=== PATIENT | male | born 1940 | race Asian ===

== ENCOUNTER 2022-09-23 23:49 | Inpatient (IN) | payer OTHER ==
[~2022-09-23] VITALS: Ht 162.6 cm; Wt 56.7 kg
--- NOTE | 2022-09-23 23:53 | NUR ---
[id number] FROM [facility] FOR GEN WEAKNESS X1DAY. PT A/OX3. TOLERATING O2 2LPM VIA N/C AT 96%. RFA HS FISTULA +BUIT/ THRILL. HD MWF. CONNECTED PT TO POX AND MONITOR. SAFETY MEASURES IN PLACE.
--- NOTE | 2022-09-24 | NUR ---
PLHEBOTOMIST AT PT'S BEDSIDE
[2022-09-24 00:25] LABS: BASOPHILS % (AUTO) 1.2 % (0.0-2.0); EOSINOPHILS % (AUTO) 6.8 % (0.0-6.0); HEMATOCRIT 33 % (39-51); HEMOGLOBIN 10.8 g/dL (13.5-17.5); LYMPHOCYTES # (AUTO) 0.8 K/uL (0.8-4.8); LYMPHOCYTES % (AUTO) 23.3 % (20.0-44.0); MEAN CORPUSCULAR HGB CONC 32 g/dl (31.0-36.0); MEAN CORPUSCULAR VOLUME 97 fL (80-96); MONOCYTES # (AUTO) 0.5 K/uL (0.1-1.30); MONOCYTES % (AUTO) 15.7 % (2.0-12.0); NEUTROPHILS # (AUTO) 1.8 K/uL (1.8-8.9); PLATELET COUNT (AUTO) 145 K/uL (150-450); RED BLOOD CELL COUNT(AUTO) 3.44 MIL/uL (4.5-6.0); WHITE BLOOD COUNT (AUTO) 3.3 K/uL (4.3-11.0)
--- NOTE | 2022-09-24 00:33 | NUR ---
CASINO FLOOR SUPERVISOR AT PT'S BEDSIDE
[2022-09-24 00:37] LABS: CALCIUM, SERUM 7.3 mg/dL (8.5-10.1); CARBON DIOXIDE 22 mmol/L (21-32); CHLORIDE 91 mmol/L (98-107); CREATININE 4.3 mg/dL (0.6-1.3); GLUCOSE 115 mg/dL (74-106); POTASSIUM 4.3 mmol/L (3.5-5.1); SODIUM SERUM 125 mmol/L (136-145); UREA NITROGEN, BLOOD 43 mg/dL (7-18)
--- NOTE | 2022-09-24 02:19 | NUR ---
COVID ANTIGEN SWAB COLLECTED AND SENT TO LAB
--- NOTE | 2022-09-24 02:33 | NUR ---
UPDATED TAWNYA (DAUGHTER) [phone]
[2022-09-24] MEDS ORDERED: AZITHROMYCIN 500 MG VIAL ONE (02:57)
[2022-09-24] MEDS ORDERED: CEFTRIAXONE 1GM BAG (ER ONLY) 50 ML IV ONE (02:57)
[2022-09-24] MEDS ORDERED: AZITHROMYCIN 500 MG in IV D5W 250 ML IV ONE (03:00)
[2022-09-24] MEDS ORDERED: MAGNESIUM HYDROXIDE 30 ML UDC PO PRN (03:00)
[2022-09-24] MEDS ORDERED: ACETAMINOPHEN 325 MG TABLET PO PRN (03:00)
[2022-09-24] MEDS ORDERED: ONDANSETRON HCL/PF 4 MG/2 ML VIAL IVP PRN (03:00)
[2022-09-24] MEDS ORDERED: Z GUARD REMEDY 4 OZ OINT TP PRN (03:00)
[2022-09-24] MEDS ORDERED: MAG HYDROX/AL HYDROX/SIMETH 30 ML UDC PO PRN (03:00)
[2022-09-24] MEDS ORDERED: CEFTRIAXONE 1GM BAG (ER ONLY) 1 GM/50 ML PIGGYBACK IV ONE (03:00)
[2022-09-24] MEDS ORDERED: DEXTROSE 50%-WATER 50 ML DISP.SYRIN IV PRN (03:00)
[2022-09-24] MEDS ORDERED: NIFE30TA91 PO (03:36)
[2022-09-24] MEDS ORDERED: DENO120V SQ (03:36)
[2022-09-24] MEDS ORDERED: BICA50TA8 PO (03:36)
[2022-09-24] MEDS ORDERED: LEVE500T20 PO (03:36)
[2022-09-24] MEDS ORDERED: COLCHICINE (03:36)
[2022-09-24] MEDS ORDERED: CARV12.52 PO (03:36)
[2022-09-24] MEDS ORDERED: FAMO20TA8 PO (03:36)
--- NOTE | 2022-09-24 03:37 | NUR ---
REPORT GIVEN TO ENE James RN FOR LIBIA
--- NOTE | 2022-09-24 03:41 | NUR ---
GETTING TRASFERRED TO THIRD FLOOR UNDER ACLS
--- NOTE | 2022-09-24 03:45 | NUR ---
ASSEMBLER DC FIELD YOKE ADMITTING NOTES PT ARRIVED TO UNIT VIA GURNEY BY ER STAFF. ON O2 3L VIA NC, TITRATED TO 4L, THEN 5L PER PT C/O SOB. VS: 113/59 BP, 69 HR, 96% O2, 97.9 F, 138.4 LB. A/O X3 WITH MOMENTS OF CONFUSION, ANXIOUS. C/O OF BEING HUNGRY/THIRSTY AND WOULD LIKE TO EAT. EXPLAINED TO PT THAT HE IS ON FLUID RESTRICTIONS AND CONSISTENT CARB DIET BUT DOES NOT VERBALIZE UNDERSTANDING. C/O THAT HUNGER IS CONTRIBUTING TO SOB. O2 MEASURSED SHOWING 94%. PLACED ON TELE MONITOR SHOWING V-PACING 60 HR. C/O SOB, NO RESPIRATORY DISTRESS NOTED. DENIES CHEST PAIN AT THIS TIME. ORIENTED TO UNIT AND HOW TO USE CALL LIGHT. IV ACCESS NOTED L HAND #18G AND LAC #18G, SL, PATENT AND INTACT. SKIN ISSUES NOTED AND DOCUMENTED IN CHART: L EYE MISSING, BRUISINGS, SACRAL DISCOLORATION. PT C/O BURNING SENSATION IN HAND IV ACCESS. ALL CARE PROVIDED. SAFETY PRECAUTIONS PUT IN PLACE: BED LOCKED AND IN LOWEST POSITION, SIDE RAILS UP X3, BED ALARM ON, CALL LIGHT AND TRAY TABLE WITHIN REACH. WILL CONTINUE TO MONITOR AND ASSIST PT.
[2022-09-24] MEDS ORDERED: LISPRO (03:49)
[2022-09-24] MEDS ORDERED: LEUP22.53 IM (03:51)
[2022-09-24] MEDS ORDERED: INSU100I40 SQ ×2 (03:51→07:47)
[2022-09-24] MEDS ORDERED: CHOL500052 PO (03:51)
[2022-09-24] MEDS ORDERED: IPRA0.2S9 NEB (03:51)
[2022-09-24] MEDS ORDERED: TAMSULOSIN (03:51)
[2022-09-24 07:15] LABS: IRON, SERUM 68 ug/dl (50-175); TOTAL IRON BINDING CAPACITY 161 ug/dl (250-450)
--- NOTE | 2022-09-24 07:15 | NUR ---
DIRECTOR SALES SUPPORT CLOSING NOTES PT AWAKE IN BED, EATING BREAKFAST AT THIS TIME. ASSISTED PER REQUEST. STABLE ON O2 5L VIA NC. A/O X3 WITH MOMENTS OF CONFUSION, ANXIOUS, NEEDY. ON TELE MONITOR SHOWING V-PACING 52 HR. C/O SOB, NO RESPIRATORY DISTRESS NOTED. HOB ELEVATED HIGH FOWLERS. PT VERBALIZES IMPROVEMENT AND STATES EATING HELPS. DENIES CHEST PAIN AT THIS TIME. IV ACCESS NOTED L HAND #18G AND LAC #18G, SL, PATENT AND INTACT. ALL CARE PROVIDED. SAFETY PRECAUTIONS MAINTAINED: BED LOCKED AND IN LOWEST POSITION, SIDE RAILS UP X3, BED ALARM ON, CALL LIGHT AND TRAY TABLE WITHIN REACH. WILL ENDORSE LIBIA TO DAY SHIFT NURSE.
[2022-09-24 07:20] LABS: EOSINOPHILS % (AUTO) 6.7 % (0.0-6.0); HEMATOCRIT 32 % (39-51); HEMOGLOBIN 10.6 g/dL (13.5-17.5); LYMPHOCYTES # (AUTO) 0.8 K/uL (0.8-4.8); LYMPHOCYTES % (AUTO) 24.1 % (20.0-44.0); MEAN CORPUSCULAR HGB CONC 33 g/dl (31.0-36.0); MEAN CORPUSCULAR VOLUME 96 fL (80-96); MONOCYTES # (AUTO) 0.4 K/uL (0.1-1.30); MONOCYTES % (AUTO) 12.2 % (2.0-12.0); NEUTROPHILS # (AUTO) 1.9 K/uL (1.8-8.9); PLATELET COUNT (AUTO) 145 K/uL (150-450); RED BLOOD CELL COUNT(AUTO) 3.36 MIL/uL (4.5-6.0); WHITE BLOOD COUNT (AUTO) 3.4 K/uL (4.3-11.0)
[2022-09-24 07:24] LABS: CHOLESTEROL 146 mg/dL (<200); HDL CHOLESTEROL 35 mg/dL (40-60); LDL 98 mg/dL (0-99); THYROID STIMULATING HORMONE 5.179 uIU/mL (0.358-3.74); TRIGLYCERIDES 88 mg/dL (30-150)
[2022-09-24 07:26] LABS: CALCIUM, SERUM 7.2 mg/dL (8.5-10.1); CARBON DIOXIDE 22 mmol/L (21-32); CHLORIDE 90 mmol/L (98-107); CREATININE 4.4 mg/dL (0.6-1.3); GLUCOSE 124 mg/dL (74-106); MAGNESIUM 2.4 mg/dL (1.8-2.4); PHOSPHORUS 4.3 mg/dL (2.5-4.9); POTASSIUM 4.3 mmol/L (3.5-5.1); SODIUM SERUM 123 mmol/L (136-145); UREA NITROGEN, BLOOD 46 mg/dL (7-18)
--- NOTE | 2022-09-24 07:30 | NUR ---
RN OPENING NOTE RECEIVED PATIENT ASLEEP FROM CIRCUIT BOARD ASSEMBLER NURSE. PATIENT IS AO X 3. TELE MONITOR IN PLACE. HAS LAC #18 AND L HAND #18. LHAND SEEMS TO CAUSE SOME PAIN SO LAC BEING USED. PT ON STRICT FLUID RESTRICTION. PATIENT SAFE, BED LOW TO THE GROUND, RAILS UP. WILL CONTINUE TO MONITOR THROUGHOUT DAY
[2022-09-24] MEDS ORDERED: CALC667T2 PO (07:47)
[2022-09-24] MEDS ORDERED: MELA3TAB41 PO (07:47)
[2022-09-24] MEDS ORDERED: AMIN30LI2 PO (07:47)
[2022-09-24] MEDS ORDERED: BISA10SU11 RC (07:47)
[2022-09-24] MEDS ORDERED: ACET-868 PO (07:47)
[2022-09-24] MEDS ORDERED: HYDR30CR99 RC (07:47)
[2022-09-24] MEDS ORDERED: COLC0.6C3 PO (07:47)
[2022-09-24] MEDS ORDERED: ISOS30TA86 PO (07:47)
[2022-09-24] MEDS ORDERED: TAMS-12 PO (07:47)
[2022-09-24] MEDS ORDERED: CALC-1143 PO (07:47)
[2022-09-24] MEDS ORDERED: NITR0.4T48 SL (07:47)
[2022-09-24] MEDS ORDERED: POLY15DR40 RIGHTEYE (07:47)
[2022-09-24] MEDS ORDERED: FOLI0.8T2 PO (07:47)
[2022-09-24] MEDS: BLOOD SUGAR DIAGNOSTIC 1 EACH STRIP IN SCH ×4 (07:56→22:01)
[2022-09-24] MEDS: INSULIN REGULAR, HUMAN 100 UNIT/ML 3 ML VIAL SQ PRN ×2 (07:56→22:02)
[2022-09-24 08:12] VITALS: BP 120/64
[2022-09-24] MEDS: CEFEPIME 1 GM in IV D5W 50 ML IV SCH ×2 (08:25→20:10)
[2022-09-24] MEDS: HEPARIN SODIUM, PORCINE 5000 UNITS/1 ML VIAL SQ SCH ×2 (08:25→20:43)
[2022-09-24] MEDS: PANTOPRAZOLE 40 MG VIAL IV SCH (08:25)
--- NOTE | 2022-09-24 09:23 | NUR ---
RN NOTE ECHO BEING DONE AT BEDSIDE
--- NOTE | 2022-09-24 10:25 | NUR ---
WOUND CARE CONSULT: PT WAS SEEN FOR SKIN ASSESSMENT AND NOTED TO HAVE SACRAL INTACT DEEP TISSUE INJURY WITH SCARRING WELL RT HEEL CALLUS AND DISCOLORATION/CALLUSES TO TOES, PRESENT ON ADMISSION. RECOMMENDATIONS MADE FOR SKIN PROTECTION. DISCUSSED WITH NURSING STAFF. MD IN AGREEMENT WITH PLAN OF CARE.
[2022-09-24] MEDS ORDERED: ISOSORBIDE MONONITRATE (30MG) 30 MG TAB.SR.24H PO PRN (10:30)
--- NOTE | 2022-09-24 11:00 | NUR ---
RN NOTE WOUND NURSE ASKED TO DOCUMENT SCAB ON L HEEL OF PATIENT. WOUND PHOTOGRAPHED AND PLACED IN CHART
[2022-09-24] MEDS: CARVEDILOL 12.5 MG TABLET PO SCH ×2 (11:01→20:08)
[2022-09-24] MEDS: NIFEdipine XL (30MG) 30 MG TAB PO SCH ×2 (11:02→20:08)
[2022-09-24] MEDS: FAMOTIDINE (20 MG) 20 MG TABLET PO SCH (11:02)
[2022-09-24] MEDS: LEVETIRACETAM (250 MG) 250 MG TABLET PO SCH (11:02)
[2022-09-24 12:00] VITALS: BP 182/86
--- NOTE | 2022-09-24 12:51 | NUR ---
RN NOTE PATIENT BLOOD PRESSURE AT 184/82. GIVING PATIENT ISOSORBIDE 30MG PRN
--- NOTE | 2022-09-24 14:59 | NUR ---
RN NOTE DIALYSIS NURSE CALLED AND ASKED WHAT PATIENTS LABS WERE LIKE. SAID HE RECIEVED A CALL FROM DOCTOR FOR ORDER AND WOULD BE COMING IN AND PERFORMING DIALYSIS MOST LIKELY LATER TONIGHT.
[2022-09-24] MEDS ORDERED: BISACODYL SUPP (10 MG) 10 MG/SUPP.RECT SUPP.RECT RC PRN (15:30)
--- NOTE | 2022-09-24 16:50 | NUR ---
RN NOTE DIALYSIS NURSE AT BEDSIDE. DAILYSIS CONSENT OBTAINED AND BEGINNING DAILYSIS
--- NOTE | 2022-09-24 19:10 | NUR ---
RN opening notes Received Pt from morning nurse. Pt is laying in bed comfortably watching tv. Pt is alert and orientedX2-3. On 4 L NC. No sob. No S/s of distress noted. LAC# 18 is clean, intact and SL. L hand# 18 is clean, intact and SL. R forearm fistula HD is clean, intact and on HD. Pt is having HD with JEAN-PIERRE Hernandez. Tele monitor showed vpacing. safety precautions is maintained. bed at low position, brakes locked, side rails upX3, hob elevated, bed alarm is on and call light is within reach.
--- NOTE | 2022-09-24 19:21 | NUR ---
RN CLOSING NOTES PT AWAKE IN BEDRECEIVING DIALYSIS. STABLE ON O2 5L VIA NC. A/O X2-3 WITH MOMENTS OF CONFUSION, ANXIOUS, NEEDY. ON TELE MONITOR SHOWING V-PACING 60 HR. C/O SOB, NO RESPIRATORY DISTRESS NOTED. HOB ELEVATED HIGH FOWLERS. DENIES CHEST PAIN AT THIS TIME. IV ACCESS NOTED L HAND #18G AND LAC #18G, PATENT AND INTACT. ALL CARE PROVIDED. SAFETY PRECAUTIONS MAINTAINED: BED LOCKED AND IN LOWEST POSITION, SIDE RAILS UP X3, BED ALARM ON, CALL LIGHT AND TRAY TABLE WITHIN REACH. WILL ENDORSE TO DENTAL LABORATORY MANAGER NURSE FOR LIBIA.
--- NOTE | 2022-09-24 19:53 | NUR ---
RN notes HD is done with dialysis nurse JEAN-PIERRE Hernandez. 2 L output. Pt tolerated well.
[2022-09-24 20:00] VITALS: BP 183/75
[2022-09-24] MEDS: CALCIUM CARBONATE 500 MG TAB.CHEW PO SCH (20:07)
[2022-09-24] MEDS: CALCIUM ACETATE 667 MG CAP/TAB PO SCH (20:08)
--- NOTE | 2022-09-24 20:08 | NUR ---
RN notes Am nurse gave meds to pm nurse that overdue at 1700 pm. administered 1700 pm meds because Pt was having HD.
[2022-09-24] MEDS: TAMSULOSIN 0.4 MG CAP.SR.24H PO SCH (21:47)
[2022-09-24] MEDS: ZOLPIDEM TARTRATE 5 MG TABLET PO PRN (22:10)
--- NOTE | 2022-09-24 22:11 | NUR ---
RN notes Pt is having insomnia and requesting a sleeping pill. administered ambien 5 mg/po/prn as ordered per Pt's requested. safety precautions is maintained. will continue to monitor.
--- NOTE | 2022-09-24 23:29 | NUR ---
RN notes Dr. Machado at the bedside. MD ordered ativan 0.5mg/Q6 hr/po/prn for anxiety. Order carried out.
[2022-09-25] VITALS: BP 179/71
[2022-09-25] MEDS: hydrALAZINE HCL IV 20 MG VIAL IV PRN (00:46)
[2022-09-25] MEDS ORDERED: POLYVINYL ALCOHOL 15 ML BOTTLE OP PRN (01:00)
[2022-09-25 04:00] VITALS: BP 159/71
[2022-09-25] MEDS: INSULIN REGULAR, HUMAN 100 UNIT/ML 3 ML VIAL SQ PRN ×2 (06:32→20:57)
[2022-09-25] MEDS: BLOOD SUGAR DIAGNOSTIC 1 EACH STRIP IN SCH ×4 (06:32→20:53)
--- NOTE | 2022-09-25 06:40 | NUR ---
RN closing notes Pt is resting in bed comfortably. Pt is alert and orientedX2-3. On 4 L NC. No sob. No S/s of distress noted. LAC# 18 is clean, intact and SL. L hand# 18 is clean, intact and SL. R forearm fistula HD is clean, intact and on HD. Tele monitor showed vpacing hr at 62. Routine meds were given as ordered. Kept Pt clean, dry and comfortable. safety precautions is maintained. bed at low position, brakes locked, side rails upX3, hob elevated, bed alarm is on and call light is within reach. will endorse to am nurse for LIBIA.
[2022-09-25 06:49] LABS: CALCIUM, SERUM 7.6 mg/dL (8.5-10.1); CARBON DIOXIDE 22 mmol/L (21-32); CHLORIDE 94 mmol/L (98-107); CREATININE 3.5 mg/dL (0.6-1.3); GLUCOSE 89 mg/dL (74-106); MAGNESIUM 2.2 mg/dL (1.8-2.4); PHOSPHORUS 3.7 mg/dL (2.5-4.9); POTASSIUM 3.9 mmol/L (3.5-5.1); SODIUM SERUM 129 mmol/L (136-145); UREA NITROGEN, BLOOD 31 mg/dL (7-18)
[2022-09-25 06:57] LABS: BASOPHILS % (AUTO) 1.7 % (0.0-2.0); EOSINOPHILS % (AUTO) 4.8 % (0.0-6.0); HEMATOCRIT 31 % (39-51); HEMOGLOBIN 10.2 g/dL (13.5-17.5); LYMPHOCYTES # (AUTO) 0.5 K/uL (0.8-4.8); LYMPHOCYTES % (AUTO) 20.8 % (20.0-44.0); MEAN CORPUSCULAR HGB CONC 33 g/dl (31.0-36.0); MEAN CORPUSCULAR VOLUME 96 fL (80-96); MONOCYTES # (AUTO) 0.3 K/uL (0.1-1.30); MONOCYTES % (AUTO) 12.2 % (2.0-12.0); NEUTROPHILS # (AUTO) 1.5 K/uL (1.8-8.9); NEUTROPHILS % (AUTO) 60.5 % (43.0-81.0); PLATELET COUNT (AUTO) 138 K/uL (150-450); RED BLOOD CELL COUNT(AUTO) 3.25 MIL/uL (4.5-6.0); WHITE BLOOD COUNT (AUTO) 2.4 K/uL (4.3-11.0)
[2022-09-25 08:00] VITALS: BP 140/71
[2022-09-25] MEDS: VIT B CMPLX 3/FA/VIT C/BIOTIN 1 TAB TABLET PO SCH (08:24)
[2022-09-25] MEDS: COLCHICINE 0.6 MG TABLET PO SCH (08:24)
[2022-09-25] MEDS: CALCIUM CARBONATE 500 MG TAB.CHEW PO SCH ×2 (08:25→16:17)
[2022-09-25] MEDS: LEVETIRACETAM (250 MG) 250 MG TABLET PO SCH (08:25)
[2022-09-25] MEDS: CARVEDILOL 12.5 MG TABLET PO SCH ×2 (08:25→16:18)
[2022-09-25] MEDS: CALCIUM ACETATE 667 MG CAP/TAB PO SCH ×3 (08:25→17:09)
[2022-09-25] MEDS: CEFEPIME 1 GM in IV D5W 50 ML IV SCH ×2 (08:26→20:48)
[2022-09-25] MEDS: NIFEdipine XL (30MG) 30 MG TAB PO SCH ×2 (08:26→16:18)
[2022-09-25] MEDS: BICALUTAMIDE 50 MG TABLET PO SCH (08:26)
[2022-09-25] MEDS: HEPARIN SODIUM, PORCINE 5000 UNITS/1 ML VIAL SQ SCH ×2 (08:27→20:43)
[2022-09-25] MEDS: PANTOPRAZOLE 40 MG VIAL IV SCH (08:27)
[2022-09-25] MEDS: ERGOCALCIFEROL (VITAMIN D 2) 50,000 UNIT CAPSULE PO SCH (08:30)
[2022-09-25] MEDS: PROSOURCE / PROSTAT (PYXIS) 30 ML UDC PO SCH (09:00)
[2022-09-25 12:00] VITALS: BP 146/78
[2022-09-25] MEDS ORDERED: NEPRO VAN 237 ML CAN PO PRN (15:30)
[2022-09-25 16:00] VITALS: BP 153/82
[2022-09-25] MEDS: IPRATROPIUM NEB FS 0.5 MG/2.5 ML AMPUL.NEB NEB PRN (18:13)
--- NOTE | 2022-09-25 18:15 | NUR ---
END OF SHIFT SUMMARY PATIENT IS A/O X2-3, FORGETFUL, CONFUSED TOWARDS THE END OF THE SHIFT. FREQUENT RE-ORIENTATION NEEDED. TAGALOG SPEAKING. ON TELE, V-PACING. TITRATED 02 TO 3 LPM VIA NC, SATURATING WELL. ON HD, ANURIC. LOYDA AV FISTULA, PRESENCE OF THRILL AND BRUIT. HEPARIN FOR VTE. LEFT EYE DRESSING CHANGED BY . MOD ASSIST WITH REPOSITIONING. BREATHING TREATMENT DONE. SAFETY MEASURES MAINTAINED. BED IN LOWEST POSITION, BRAKES LOCKED. SIDE RAILS UP X2. CALL LIGHT WITHIN REACH. WILL ENDORSE CONTINUITY OF CARE TO ONCOMING SHIFT.
--- NOTE | 2022-09-25 18:16 | NUR ---
END OF SHIFT SUMMARY PATIENT IS A/O X3, WEANED OFF 02, SATURATING WELL ON RA. ON TELE, SR. LIV IN PLACE, INCONTINENCE CARE PROVIDED. LOTRIMIN APPLIED TO FOLDS. SCDs FOR VTE. SAFETY MEASURES MAINTAINED. BED IN LOWEST POSITION, BRAKES LOCKED. SIDE RAILS UP X2. CALL LIGHT WITHIN REACH. WILL ENDORSE CONTINUITY OF CARE TO ONCOMING SHIFT. Addendum: 09/25/22 at 1820 by MKIKI BHATTI RN VOID. DISREGARD.
[2022-09-25 20:00] VITALS: BP_SYST 159; BP_SYST 199; BP_DIAS 104; BP_DIAS 90
[2022-09-25] MEDS: LORAZEPAM 0.5 MG TABLET PO PRN (20:33)
--- NOTE | 2022-09-25 20:43 | NUR ---
ANTICOAGULANT H/H 10. Plt 138 No active bleeding. Given Heparin injection, co-signed by JEAN-PIERRE Collier.
[2022-09-25] MEDS: TAMSULOSIN 0.4 MG CAP.SR.24H PO SCH (21:34)
[2022-09-25] MEDS: ZOLPIDEM TARTRATE 5 MG TABLET PO PRN (21:36)
[2022-09-26] VITALS: BP 178/77
[2022-09-26] MEDS: hydrALAZINE HCL IV 20 MG VIAL IV PRN ×2 (00:30→20:53)
[2022-09-26] MEDS: IPRATROPIUM NEB FS 0.5 MG/2.5 ML AMPUL.NEB NEB PRN ×2 (01:02→20:20)
--- NOTE | 2022-09-26 01:48 | NUR ---
WHEEZING Patient in bed, restless, trying to get out of bed. Constantly removed NC by himself, desat to high 80's in RA. Diminished breath sounds cristi LL, inspiratory wheezing. Nebulizer not helping at this time. Oxygen sat high 90's in 3L NC. Notified CUSTOMER CARE TEAM COACH Ailyn with new orders, Chest xray Solu-medrol 125mg IV x1 CBC BMP. Will cont to monitor.
[2022-09-26] MEDS ORDERED: methylPREDNISolone SOD SUCC 125 MG/2ML VIAL IV ONE (02:00)
[2022-09-26 06:03] LABS: BASOPHILS % (AUTO) 0.4 % (0.0-2.0); EOSINOPHILS % (AUTO) 1.1 % (0.0-6.0); HEMATOCRIT 33 % (39-51); HEMOGLOBIN 10.9 g/dL (13.5-17.5); LYMPHOCYTES # (AUTO) 0.6 K/uL (0.8-4.8); LYMPHOCYTES % (AUTO) 20.3 % (20.0-44.0); MEAN CORPUSCULAR HGB CONC 33 g/dl (31.0-36.0); MEAN CORPUSCULAR VOLUME 96 fL (80-96); MONOCYTES # (AUTO) 0.1 K/uL (0.1-1.30); MONOCYTES % (AUTO) 3.2 % (2.0-12.0); NEUTROPHILS # (AUTO) 2.3 K/uL (1.8-8.9); PLATELET COUNT (AUTO) 144 K/uL (150-450); RED BLOOD CELL COUNT(AUTO) 3.43 MIL/uL (4.5-6.0)
[2022-09-26] MEDS: INSULIN REGULAR, HUMAN 100 UNIT/ML 3 ML VIAL SQ PRN ×3 (06:07→16:52)
[2022-09-26] MEDS: BLOOD SUGAR DIAGNOSTIC 1 EACH STRIP IN SCH ×4 (06:07→21:37)
[2022-09-26 06:21] LABS: CALCIUM, SERUM 7.7 mg/dL (8.5-10.1); CARBON DIOXIDE 22 mmol/L (21-32); CHLORIDE 91 mmol/L (98-107); CREATININE 4.3 mg/dL (0.6-1.3); GLUCOSE 120 mg/dL (74-106); MAGNESIUM 2.5 mg/dL (1.8-2.4); PHOSPHORUS 4.6 mg/dL (2.5-4.9); POTASSIUM 4.3 mmol/L (3.5-5.1); SODIUM SERUM 126 mmol/L (136-145); UREA NITROGEN, BLOOD 45 mg/dL (7-18)
--- NOTE | 2022-09-26 06:25 | NUR ---
END OF SHIFT SUMMARY Patient in bed, V Pacing in the Tele monitor HR 71. Oxygen sat high 90's in 3L NC, breathing improved after IV Solu medrol. Patient able to sleep after Ambien and slowly calm down with Ativan. RFA AV Fistula (+) Bruit and Thrill. Left hand IV peripheral line intact. On Abx. Afebrile. Turned and repositioned q2h, skin precaution maintained. Am lab drawn, CXray done. Dialysis treatment in progress. Will endorse to oncoming RN.
[2022-09-26 08:00] VITALS: BP_SYST 136; BP_SYST 139; BP_DIAS 62; BP_DIAS 69
[2022-09-26] MEDS: CALCIUM CARBONATE 500 MG TAB.CHEW PO SCH ×2 (09:17→16:47)
[2022-09-26] MEDS: CALCIUM ACETATE 667 MG CAP/TAB PO SCH ×3 (09:18→17:25)
[2022-09-26] MEDS: LEVETIRACETAM (250 MG) 250 MG TABLET PO SCH (09:18)
[2022-09-26] MEDS: VIT B CMPLX 3/FA/VIT C/BIOTIN 1 TAB TABLET PO SCH (09:18)
[2022-09-26] MEDS: COLCHICINE 0.6 MG TABLET PO SCH (09:19)
[2022-09-26] MEDS: NIFEdipine XL (30MG) 30 MG TAB PO SCH ×2 (09:19→16:48)
[2022-09-26] MEDS: HEPARIN SODIUM, PORCINE 5000 UNITS/1 ML VIAL SQ SCH ×2 (09:20→21:16)
[2022-09-26] MEDS: CARVEDILOL 12.5 MG TABLET PO SCH ×2 (09:20→16:48)
[2022-09-26] MEDS: PANTOPRAZOLE 40 MG/PACK PACK PO SCH (09:23)
[2022-09-26] MEDS: PROSOURCE / PROSTAT (PYXIS) 30 ML UDC PO SCH (09:25)
[2022-09-26] MEDS: BICALUTAMIDE 50 MG TABLET PO SCH (09:52)
[2022-09-26] MEDS: CEFEPIME 1 GM in IV D5W 50 ML IV SCH (09:54)
[2022-09-26] MEDS: FAMOTIDINE (20 MG) 20 MG TABLET PO SCH (10:55)
--- NOTE | 2022-09-26 15:59 | NUR ---
PATIENT STILL TRYING TO PRODUCE A PEE FOR URINE ANALYSIS PER STAT ORDER, UNSUCCESSFUL UP TO THIS TIME. MARY ANNE IS ON THE BEDSIDE AND HELPING OUT. PATIENT ALREADY SIPS APPROXIMATELY 50ML OF WATER
[2022-09-26 16:00] VITALS: BP 111/76
[2022-09-26] MEDS: LORAZEPAM 0.5 MG TABLET PO PRN (17:19)
--- NOTE | 2022-09-26 19:33 | NUR ---
RN OPENING NOTE; RECEIVED PT IN BED AAOX3 FAMILY AT BEDSIDE,ON RM AIR JOSE WELL SATTING 97%,NO SIGN SOB/DISTRESS NOTED,NO COMPLAIN OF PAIN/DISCOMFORT AT THIS TIME,IV ACCESS LH 20G,RAC 20G SL,PATENT AND INTACT,SAFETY MEASURE IN PLACE,CALL LIGHT WITHIN REACH,WILL CONTINUE TO MONITOR.
--- NOTE | 2022-09-26 19:40 | NUR ---
RN CLOSING NOTES PT AWAKE IN BED STABLE ON O2 4L VIA NC. A/O X2-3 WITH EPISODES OF CONFUSION, ANXIOUS, NEEDY. ON TELE MONITOR SHOWING V-PACING 79 HR. C/O SOB, NO RESPIRATORY DISTRESS NOTED. HOB ELEVATED HIGH FOWLERS. DENIES CHEST PAIN AT THIS TIME. IV ACCESS NOTED L HAND #18G AND LAC #18G, PATENT AND INTACT. ALL CARE PROVIDED. SAFETY PRECAUTIONS MAINTAINED: BED LOCKED AND IN LOWEST POSITION, SIDE RAILS UP X3, BED ALARM ON, CALL LIGHT AND TRAY TABLE WITHIN REACH. WILL ENDORSE TO FISH HATCHERY INSPECTOR NURSE FOR LIBIA.
[2022-09-26] MEDS: TAMSULOSIN 0.4 MG CAP.SR.24H PO SCH (21:14)
[2022-09-26] MEDS: CEFEPIME 2 GM in IV D5W 100 ML IV SCH (21:15)
[2022-09-26] MEDS: ZOLPIDEM TARTRATE 5 MG TABLET PO PRN (22:21)
[2022-09-27] VITALS (38 sets, daily range): BP systolic 100–178; BP diastolic 46–107
--- NOTE | 2022-09-27 06:20 | NUR ---
RN OPENING NOTES; PATIENT IN BED AAOX2 CONFUSED,ON 4L O2 VIA NC JOSE WELL SATTING 98%,NO SIGN SOB/DISTRESS NOTED,NO SIGN OF PAIN/DISCOMFORT DURING SHIFT,DUE MEDS GIVEN ORDER,ALL NEEDS ATTENDED,IV ACCESS NOTED L HAND #18G AND LAC #18G, PATENT AND INTACT. SAFETY PRECAUTIONS MAINTAINED: BED LOCKED AND IN LOWEST POSITION, SIDE RAILS UP X3, BED ALARM ON, CALL LIGHT WITHIN REACH. WILL ENDORSE TO PAYABLE MANAGER.
[2022-09-27 07:35] LABS: CALCIUM, SERUM 7.9 mg/dL (8.5-10.1); CARBON DIOXIDE 26 mmol/L (21-32); CHLORIDE 95 mmol/L (98-107); CREATININE 3.6 mg/dL (0.6-1.3); GLUCOSE 101 mg/dL (74-106); MAGNESIUM 2.3 mg/dL (1.8-2.4); PHOSPHORUS 4.4 mg/dL (2.5-4.9); POTASSIUM 3.8 mmol/L (3.5-5.1); SODIUM SERUM 132 mmol/L (136-145); UREA NITROGEN, BLOOD 36 mg/dL (7-18)
[2022-09-27] MEDS: BLOOD SUGAR DIAGNOSTIC 1 EACH STRIP IN SCH ×4 (07:37→22:05)
[2022-09-27 08:26] LABS: BASOPHILS % (AUTO) 0.3 % (0.0-2.0); EOSINOPHILS % (AUTO) 0.2 % (0.0-6.0); HEMATOCRIT 29 % (39-51); HEMOGLOBIN 9.7 g/dL (13.5-17.5); LYMPHOCYTES # (AUTO) 0.4 K/uL (0.8-4.8); LYMPHOCYTES % (AUTO) 9.7 % (20.0-44.0); MEAN CORPUSCULAR HGB CONC 33 g/dl (31.0-36.0); MEAN CORPUSCULAR VOLUME 96 fL (80-96); MONOCYTES # (AUTO) 0.5 K/uL (0.1-1.30); NEUTROPHILS # (AUTO) 3.6 K/uL (1.8-8.9); NEUTROPHILS % (AUTO) 79.8 % (43.0-81.0); PLATELET COUNT (AUTO) 102 K/uL (150-450); RED BLOOD CELL COUNT(AUTO) 3.03 MIL/uL (4.5-6.0); WHITE BLOOD COUNT (AUTO) 4.6 K/uL (4.3-11.0)
--- NOTE | 2022-09-27 08:34 | NUR ---
RN NOTES PT SUPPLEMENTAL 02 VIA N/C @ 4LPM TITRATED DOWN TO 2LPM. PT TOLERATING WELL WITH NO SOB NOTED. 02 SAT NOTED AT 94-95% AT THIS TIME. WILL CONTINUE TO MONITOR
[2022-09-27] MEDS: NIFEdipine XL (30MG) 30 MG TAB PO SCH ×2 (09:00→17:00)
[2022-09-27] MEDS: CARVEDILOL 12.5 MG TABLET PO SCH ×2 (09:00→17:00)
[2022-09-27] MEDS: PANTOPRAZOLE 40 MG/PACK PACK PO SCH (09:26)
[2022-09-27] MEDS: COLCHICINE 0.6 MG TABLET PO SCH (09:26)
[2022-09-27] MEDS: HEPARIN SODIUM, PORCINE 5000 UNITS/1 ML VIAL SQ SCH ×2 (09:26→21:00)
[2022-09-27] MEDS: CALCIUM CARBONATE 500 MG TAB.CHEW PO SCH ×2 (09:26→17:00)
[2022-09-27] MEDS: LEVETIRACETAM (250 MG) 250 MG TABLET PO SCH (09:28)
[2022-09-27] MEDS: CALCIUM ACETATE 667 MG CAP/TAB PO SCH ×3 (09:28→17:50)
[2022-09-27] MEDS: PROSOURCE / PROSTAT (PYXIS) 30 ML UDC PO SCH (10:08)
[2022-09-27] MEDS: BICALUTAMIDE 50 MG TABLET PO SCH (10:13)
[2022-09-27] MEDS: VIT B CMPLX 3/FA/VIT C/BIOTIN 1 TAB TABLET PO SCH (10:20)
[2022-09-27] MEDS: INSULIN REGULAR, HUMAN 100 UNIT/ML 3 ML VIAL SQ PRN ×2 (11:49→17:54)
--- NOTE | 2022-09-27 12:15 | NUR ---
dr. Sandoval informed about abnormal abg, new order to transfer pt to ICU for Bipap.
--- NOTE | 2022-09-27 12:17 | NUR ---
informed about ABG, bipap 20/5 and repeat ABG in one hour.
--- NOTE | 2022-09-27 12:20 | NUR ---
discussed with Rn tool and die supervisor, ICU bed 253
--- NOTE | 2022-09-27 12:29 | NUR ---
RN NOTES PATIENT NOTED WITH ABNORMAL ABG, DR ATWOOD AND DR KAPOOR MADE AWARE WITH ORDER TO TRANSFER PT TO ICU VIA ACLS PROTOCOL. PT TRANSFERRED TO ICU RM 253, REPORT GIVEN TO JEAN-PIERRE WARD AT 1135. PT'S VISITED UNIT AND INFORMED HER OF PT'S CONDITION AND ACCOMPANIED HER BY JEAN-PIERRE VELIZ TO PT'S ROOM IN ICU
[2022-09-27 12:30] LABS: ABG BASE EXCESS -4.2 mmol/L; ABG OXYGEN SATURATION 91.8 % (92.0-98.5); ABG PCO2 57.2 mmHg (35.0-45.0); ABG PH 7.234 (7.350-7.450); ABG PO2 67.9 mmHg (75.0-100.0); AaDO2 122.4 mmHg; COHb 1.9 % (0.5-1.5); MetHb 0.3 % (0.0-1.5); O2Hb 89.8 % (94.0-97.0); SITE, ABG Left Radial; VENT MODE, BG 4LPM NC
--- NOTE | 2022-09-27 12:40 | NUR ---
RT NOTE POST ABG RESULTS SHOWN TO DR. ATWOOD. PLACE PATIENT ON BIPAP WITH SETTINGS PER MD. 18/5, BUR 18, 60%. NO SOB NOTED AT THIS TIME. MONITORING CLOSELY FOR ANY CHANGES. RN NOTIFIED AND AWARE.
--- NOTE | 2022-09-27 12:42 | NUR ---
RECEIVED PT FROM [facility] TO ICU. BIPAP 18/ SETTING , BEDSIDE REPORT GIVEN BY SAMEERA.
[2022-09-27] MEDS: LEVOTHYROXINE SODIUM 25 MCG TABLET PO SCH (13:00)
[2022-09-27] MEDS ORDERED: VANCOMYCIN 1 GM in IV D5W 250 ML IV ONE (14:00)
[2022-09-27] MEDS ORDERED: VANCOMYCIN 500 MG in IV D5W 100 ML IV PRN (14:00)
--- NOTE | 2022-09-27 14:20 | NUR ---
DR. KAPOOR WAS NOTIFIED OF THE CT HEAD/CT CHEST RESULT NO ORDER MADE REGARDING THIS; MD ALSO AWARE THAT PT.'S -MARY ANNE AGREED WITH RESTRAINT.
[2022-09-27] MEDS: IV NS 0.9% 250 ML IV PRN (14:46)
[2022-09-27 15:14] LABS: ABG BASE EXCESS -4.2 mmol/L; ABG OXYGEN SATURATION 96.6 % (92.0-98.5); ABG PCO2 48.8 mmHg (35.0-45.0); ABG PH 7.283 (7.350-7.450); ABG PO2 92.7 mmHg (75.0-100.0); AaDO2 281.4 mmHg; COHb 1.3 % (0.5-1.5); MetHb 0.3 % (0.0-1.5); O2Hb 95.1 % (94.0-97.0); SITE, ABG Left Radial; VENT MODE, BG ST 18/5 RR18 60%
--- NOTE | 2022-09-27 15:29 | NUR ---
RT NOTE Abg taken and results reported to Jaime ROSENBAUM. Bipap changes made per Jaime ROSENBAUM. RN aware Addendum: 09/27/22 at 1530 by DEONNA SUAREZ RT Amended: Links added.
--- NOTE | 2022-09-27 21:00 | NUR ---
DOOR FITTER - NOTIFIED MD OF RESULTED CT SCAN HEAD. RECEIVED PHONE ORDER - HOLD HEPARIN PER BIOMETRIC FINGERPRINTING TECHNICIAN MD
[2022-09-27] MEDS: TAMSULOSIN 0.4 MG CAP.SR.24H PO SCH (21:36)
--- NOTE | 2022-09-27 22:00 | NUR ---
MANAGER ENGLISH - PT IS RESTLESS AND AGITATED, STILL ON BILATERAL WRIST SOFT RESTRAINTS, CHECKED CIRC EVERY 2 HOURS. RELEASED. TURNED AND REPOSITIONED. BED BATH DONE. KEPT COMFORTABLE. WILL CONTINUE TO MONITOR.
[2022-09-27] MEDS: CEFEPIME 2 GM in IV D5W 100 ML IV SCH (22:05)
[2022-09-28] VITALS (60 sets, daily range): BP systolic 93–229; BP diastolic 27–135
--- NOTE | 2022-09-28 | NUR ---
PHOTOGRAPH RETOUCHER - NOTED PERIPHERAL IV SITE AT LEFT HAND #24, ATTEMPTED INSERTION AT OTHER SITE - HARD STICK. INFORMED CHARGE NURSE. NOTIFIED Meenu SANFORD RN AND APPROVED FOR MIDLINE INSERTION 09/28/2022 EARLY IN THE MORNING.
[2022-09-28 04:37] LABS: EOSINOPHILS % (AUTO) 1.6 % (0.0-6.0); HEMATOCRIT 35 % (39-51); HEMOGLOBIN 11.3 g/dL (13.5-17.5); LYMPHOCYTES # (AUTO) 0.2 K/uL (0.8-4.8); LYMPHOCYTES % (AUTO) 4.8 % (20.0-44.0); MEAN CORPUSCULAR HGB CONC 32 g/dl (31.0-36.0); MEAN CORPUSCULAR VOLUME 97 fL (80-96); MONOCYTES # (AUTO) 0.4 K/uL (0.1-1.30); MONOCYTES % (AUTO) 8.5 % (2.0-12.0); NEUTROPHILS # (AUTO) 4.1 K/uL (1.8-8.9); NEUTROPHILS % (AUTO) 85.1 % (43.0-81.0); PLATELET COUNT (AUTO) 97 K/uL (150-450); RED BLOOD CELL COUNT(AUTO) 3.64 MIL/uL (4.5-6.0); WHITE BLOOD COUNT (AUTO) 4.8 K/uL (4.3-11.0)
[2022-09-28 04:55] LABS: CALCIUM, SERUM 8.1 mg/dL (8.5-10.1); CARBON DIOXIDE 26 mmol/L (21-32); CHLORIDE 98 mmol/L (98-107); CREATININE 2.8 mg/dL (0.6-1.3); GLUCOSE 85 mg/dL (74-106); MAGNESIUM 2.3 mg/dL (1.8-2.4); PHOSPHORUS 3.1 mg/dL (2.5-4.9); POTASSIUM 3.5 mmol/L (3.5-5.1); SODIUM SERUM 132 mmol/L (136-145); UREA NITROGEN, BLOOD 30 mg/dL (7-18)
--- NOTE | 2022-09-28 05:00 | NUR ---
AIR SURVEILLANCE OPERATOR - BP IS HIGH 212/94. GIVEN HYDRALAZINE PRN ORDERED. KEPT COMFORTABLE. WILL CONTINUE TO MONITOR.
[2022-09-28] MEDS: hydrALAZINE HCL IV 20 MG VIAL IV PRN ×3 (05:13→16:25)
[2022-09-28] MEDS ORDERED: MORPHINE SULFATE INJ 2 MG/ML DISP.SYRIN IV ONE (05:30)
--- NOTE | 2022-09-28 05:30 | NUR ---
PT IS IN PAIN, RESTLESS AND MOANING. INFORMED JAVASCRIPT ENGINEER DOCTOR. ORDERED MORPHINE 1MG. GIVEN. WILL RE ASSESS. KEPT COMFORTABLE.
--- NOTE | 2022-09-28 06:15 | NUR ---
RECEIVED PHONE CALL FROM YISSEL ALLAN RN. ORDERED HEMODIALYSIS TODAY, ORDERED DR. BENJAMIN.
--- NOTE | 2022-09-28 06:30 | NUR ---
BP STILL HIGH 218/106. NOTIFIED AL WAHL. ORDERED ANOTHER DOSE OF HYDRALAZINE 10MG. GIVEN. WILL CONT TO MONITOR.
[2022-09-28] MEDS: IV NS 0.9% 250 ML IV PRN (06:51)
[2022-09-28] MEDS: LEVOTHYROXINE SODIUM 25 MCG TABLET PO SCH (07:30)
--- NOTE | 2022-09-28 07:30 | NUR ---
OPENING NOTE: REPORT RECEIVED FROM BENY RN. ORDERS AND LABS REVIEWED DURING REPORT. HD ORDERED FOR TODAY. PT ON BIPAP PER MD ORDERS. PER REPORT PT'S BP IS HIGH, UP TO SBP 200. WILL CONTINUE TO MONITOR.
[2022-09-28] MEDS ORDERED: NTG 50 MG/D5W250 ML BOTTL 250 ML IV PRN (08:00)
[2022-09-28] MEDS ORDERED: CLONIDINE HCL 0.3 MG/24H PTWK 1 EA PATCH TD SCH (08:00)
[2022-09-28] MEDS: CALCIUM ACETATE 667 MG CAP/TAB PO SCH ×3 (08:00→17:18)
[2022-09-28] MEDS: BICALUTAMIDE 50 MG TABLET PO SCH (08:06)
[2022-09-28] MEDS: CARVEDILOL 12.5 MG TABLET PO SCH ×2 (08:07→17:00)
[2022-09-28] MEDS: COLCHICINE 0.6 MG TABLET PO SCH (08:07)
[2022-09-28] MEDS: LEVETIRACETAM (250 MG) 250 MG TABLET PO SCH (08:07)
[2022-09-28] MEDS: PROSOURCE / PROSTAT (PYXIS) 30 ML UDC PO SCH (08:08)
[2022-09-28] MEDS: CALCIUM CARBONATE 500 MG TAB.CHEW PO SCH ×2 (08:08→17:00)
[2022-09-28] MEDS: VIT B CMPLX 3/FA/VIT C/BIOTIN 1 TAB TABLET PO SCH (08:08)
[2022-09-28] MEDS: NIFEdipine XL (30MG) 30 MG TAB PO SCH ×2 (08:08→17:00)
[2022-09-28] MEDS: PANTOPRAZOLE 40 MG/PACK PACK PO SCH (08:08)
[2022-09-28] MEDS: FAMOTIDINE (20 MG) 20 MG TABLET PO SCH (10:30)
[2022-09-28 11:06] LABS: LYMPHOCYTES % (MANUAL) 8 % (16-48); MONOCYTES % (MANUAL) 5 % (0-11.0); NEUTROPHILS % (MANUAL) 85 (42-76)
[2022-09-28 11:07] LABS: EOSINOPHILS % (MANUAL) 2 % (0-4)
[2022-09-28] MEDS: BLOOD SUGAR DIAGNOSTIC 1 EACH STRIP IN SCH ×2 (12:27→18:07)
[2022-09-28] MEDS: HEPARIN SODIUM, PORCINE 5000 UNITS/1 ML VIAL SQ SCH ×2 (12:29→21:00)
[2022-09-28 15:25] LABS: ABG BASE EXCESS -4.3 mmol/L; ABG OXYGEN SATURATION 91.6 % (92.0-98.5); ABG PCO2 51.8 mmHg (35.0-45.0); ABG PH 7.265 (7.350-7.450); ABG PO2 68.4 mmHg (75.0-100.0); AaDO2 128.2 mmHg; COHb 1.6 % (0.5-1.5); MetHb 0.3 % (0.0-1.5); O2Hb 89.9 % (94.0-97.0); SITE, ABG Right Radial; VENT MODE, BG NASAL CANNULA
[2022-09-28] MEDS ORDERED: VANCOMYCIN 1 GM in IV D5W 250ml IV ONE (16:00)
[2022-09-28] MEDS ORDERED: hydrALAZINE HCL IV 20 MG VIAL IV ONE (18:30)
[2022-09-28] MEDS ORDERED: hydrALAZINE HCL IV 20 MG VIAL IV PRN (18:30)
[2022-09-28] MEDS: DEXTROSE 50%-WATER 50 ML DISP.SYRIN IV PRN (18:40)
--- NOTE | 2022-09-28 19:12 | NUR ---
END OF SHIFT NOTE: PT HAD HD 2L OUT. PT'S BLOOD PRESSURE FLUCTUATED TODAY. CLONIDINE PATCH APPLIED PER MD ORDERS. HYDRALAZINE GIVEN PER MD ORDERS, ORDER CHANGED TO INCREASE DOSE TO 20MG Q6H. ONE TIME DOSE OF HYDRALAZINE GIVEN PER MD ORDERS. PT'S BLOOD GLUCOSE WAS 62, D50 GIVEN PER MD ORDERS. PT CHECKED ON HOURLY AND PRN BY NURSING STAFF.
--- NOTE | 2022-09-28 20:30 | NUR ---
ICU/POLYGRAPH OPERATOR RECHECK BLOOD SUGAR IS 114 FROM 68. WILL MONITOR THIS PT.
[2022-09-28] MEDS: CEFEPIME 2 GM in IV D5W 100 ML IV SCH (20:36)
--- NOTE | 2022-09-28 21:00 | NUR ---
ICU/REFINISHER HYDRALAZINE 20MG IVP GIVEN FOR BP 229/75 WITH HEART RATE 76. WILL CONTINUE TO MONITOR THIS PT AND HIS BP.
[2022-09-28] MEDS: TAMSULOSIN 0.4 MG CAP.SR.24H PO SCH (21:21)
--- NOTE | 2022-09-28 21:30 | NUR ---
ICU/HOP WEIGHER HEPARIN @2100 WAS HELD DUE TO LOW PLT AND PT IS BLEEDING. WILL CONTINUE TO MONITOR THIS PT AND HIS LABS.
--- NOTE | 2022-09-28 22:30 | NUR ---
ICU/COLORER HIDES AND SKINS DAUGHTER OF PT CAME IN AND WAS ASKING ABOUT UPDATE ON THIS PT DESPITE SHE HAD JUST WENT HOME 1 HOUR AGO. PT'S DAUGHTER REQUESTING PT BE TRANSFERRED TO [facility]. ALSO EXPLAINED THAT HEPARIN WAS HELD FOR LOW PLT. PT'S DAUGHTER WOULD LIKE THIS D/C'D. SHE ALSO WANTS TO TALK TO DR. GERBER TO ANSWER THE QUESTIONS IN THE VERY BEST WAY POSSIBLE BUT REFEREED HER TO DAY SHIFT AND WHEN MD WILL BE HERE.
[2022-09-29] VITALS (99 sets, daily range): BP systolic 92–216; BP diastolic 34–136
--- NOTE | 2022-09-29 00:30 | NUR ---
ICU/ODD TICKET CLERK RESIDUAL IS COMING DOWN HOWEVER IT'S STILL GREATER THAN 150ML. ALSO PT'S BLOOD SUGAR IS 89, THERE IS NO COVERAGE FOR THIS. WILL CONTINUE TO MONITOR THIS PER MD'S ORDERS.
[2022-09-29] MEDS: BLOOD SUGAR DIAGNOSTIC 1 EACH STRIP IN SCH ×4 (00:39→18:03)
[2022-09-29] MEDS: hydrALAZINE HCL IV 20 MG VIAL IV PRN ×2 (01:45→05:44)
--- NOTE | 2022-09-29 02:00 | NUR ---
ICU/COMPUTING ARCHITECT OBTAIN AND ORDER TO GIVE HYDRAZINE 20MG IVP EVERY 4HR INSTEAD OF EVERY 6HRS. PT'S BLOOD PRESSURE IS ALL OVER FROM 160'S TO 200'S. PT IS CURRENTLY NPO DUE TO BIPAP AND POSSIBLITY OF ASPIRATION. THIS WAS GIVEN BY ROBOTIC TECHNICIAN NURSE, SEE BENNY FOR BP. WILL MONITOR THIS PT.
--- NOTE | 2022-09-29 03:53 | NUR ---
ICU/ANGLESMITH HELPER DAUGHTER CALLED ASKING FOR UPDATES AND [facility] CALLED TO SEE IF FATHER COULD BE TRANSFERED UT TO ANOTHER HOSPITAL. TRIED TO EXPLAIN THIS TO THE DAUGHTER ABOUT TRANSFER AND WHAT MD WANTS TO DO.
[2022-09-29] MEDS: DEXTROSE 50%-WATER 50 ML DISP.SYRIN IV PRN (04:47)
[2022-09-29 04:59] LABS: BASOPHILS % (AUTO) 0.4 % (0.0-2.0); EOSINOPHILS % (AUTO) 1.3 % (0.0-6.0); HEMATOCRIT 31 % (39-51); HEMOGLOBIN 10.5 g/dL (13.5-17.5); LYMPHOCYTES # (AUTO) 0.5 K/uL (0.8-4.8); MEAN CORPUSCULAR HGB CONC 34 g/dl (31.0-36.0); MEAN CORPUSCULAR VOLUME 95 fL (80-96); MONOCYTES # (AUTO) 0.7 K/uL (0.1-1.30); MONOCYTES % (AUTO) 15.6 % (2.0-12.0); NEUTROPHILS # (AUTO) 3.1 K/uL (1.8-8.9); NEUTROPHILS % (AUTO) 70.7 % (43.0-81.0); PLATELET COUNT (AUTO) 98 K/uL (150-450); WHITE BLOOD COUNT (AUTO) 4.4 K/uL (4.3-11.0)
[2022-09-29 05:17] LABS: CALCIUM, SERUM 8.1 mg/dL (8.5-10.1); CARBON DIOXIDE 24 mmol/L (21-32); CHLORIDE 100 mmol/L (98-107); CREATININE 2.7 mg/dL (0.6-1.3); GLUCOSE 74 mg/dL (74-106); MAGNESIUM 2.1 mg/dL (1.8-2.4); PHOSPHORUS 2.1 mg/dL (2.5-4.9); POTASSIUM 3.5 mmol/L (3.5-5.1); SODIUM SERUM 136 mmol/L (136-145); UREA NITROGEN, BLOOD 28 mg/dL (7-18)
[2022-09-29 05:56] LABS: BASOPHILS % (MANUAL) 0 % (0.0-2.0); EOSINOPHILS % (MANUAL) 0 % (0-4); LYMPHOCYTES % (MANUAL) 13 % (16-48); MONOCYTES % (MANUAL) 14 % (0-11.0); NEUTROPHILS % (MANUAL) 73 (42-76)
--- NOTE | 2022-09-29 06:50 | NUR ---
ICU/AUTOMOBILE BRAKES BONDER TILE MECHANIC NURSE GAVE HYDRALAZINE 20MG IVP FOR ELEVATED BP 200'S-180'S. WILL MONITOR THIS PTS BP.
[2022-09-29] MEDS: LEVOTHYROXINE SODIUM 25 MCG TABLET PO SCH (07:30)
--- NOTE | 2022-09-29 07:33 | NUR ---
HELD PT'S ORAL MEDS IN THE MORNING DUE TO HIGH ASPIRATION RISK AND PT IS STILL UNSTABLE IF BIPAP REMOVED. Addendum: 09/29/22 at 08 by ALVIN ZHANG RN HELD PT'S NON-EMERGENT MEDS DUE TO RISK OF ASPIRATION Addendum: 09/29/22 at 1911 by ALVIN ZHANG RN NON-CRITICAL MEDS HELD DUE TO HIGH RISK FOR ASPIRATION AND PT UNABLE TO TOLERATE BEING OFF THE BIPAP FOR TOO LONG.
[2022-09-29] MEDS: CALCIUM ACETATE 667 MG CAP/TAB PO SCH ×3 (08:00→17:59)
[2022-09-29 08:19] LABS: ABG BASE EXCESS -0.1 mmol/L; ABG OXYGEN SATURATION 97.1 % (92.0-98.5); ABG PH 7.422 (7.350-7.450); ABG PO2 89.6 mmHg (75.0-100.0); AaDO2 151.9 mmHg; COHb 1.5 % (0.5-1.5); MetHb 0.3 % (0.0-1.5); O2Hb 95.4 % (94.0-97.0); SITE, ABG Right Radial; VENT MODE, BG ST 20/5 12 40%
[2022-09-29] MEDS: PROSOURCE / PROSTAT (PYXIS) 30 ML UDC PO SCH (08:31)
[2022-09-29] MEDS: VIT B CMPLX 3/FA/VIT C/BIOTIN 1 TAB TABLET PO SCH (08:31)
[2022-09-29] MEDS: CALCIUM CARBONATE 500 MG TAB.CHEW PO SCH ×2 (08:32→16:59)
[2022-09-29] MEDS: PANTOPRAZOLE 40 MG/PACK PACK PO SCH (08:32)
[2022-09-29] MEDS: COLCHICINE 0.6 MG TABLET PO SCH (08:32)
[2022-09-29] MEDS: HEPARIN SODIUM, PORCINE 5000 UNITS/1 ML VIAL SQ SCH (08:32)
[2022-09-29] MEDS: BICALUTAMIDE 50 MG TABLET PO SCH (08:50)
[2022-09-29] MEDS: CARVEDILOL 12.5 MG TABLET PO SCH ×2 (08:50→17:01)
[2022-09-29] MEDS: NIFEdipine XL (30MG) 30 MG TAB PO SCH ×2 (08:51→17:01)
[2022-09-29] MEDS: LEVETIRACETAM (250 MG) 250 MG TABLET PO SCH (08:51)
[2022-09-29] MEDS ORDERED: NTG 50 MG/D5W250 ML BOTTL 250 ML IV PRN (09:00)
[2022-09-29] MEDS: IV NS 0.9% 250 ML IV PRN (17:08)
[2022-09-29] MEDS: CEFEPIME 2 GM in IV D5W 100 ML IV SCH (20:38)
[2022-09-29] MEDS: TAMSULOSIN 0.4 MG CAP.SR.24H PO SCH (20:41)
[2022-09-30] VITALS (95 sets, daily range): BP systolic 94–245; BP diastolic 31–113
[2022-09-30] MEDS: hydrALAZINE HCL IV 20 MG VIAL IV PRN ×3 (00:11→16:07)
[2022-09-30] MEDS: BLOOD SUGAR DIAGNOSTIC 1 EACH STRIP IN SCH ×5 (01:07→23:31)
--- NOTE | 2022-09-30 01:30 | NUR ---
ICU/AIRPORT DRIVER HYDRALAZINE PRN IVP WAS GIVEN BY FIFTH GRADE TEACHER NURSE FOR INCREASED BLOOD PRESSURE 190'S-180'S. WILL CONTINUE TO MONITOR THIS PT.
--- NOTE | 2022-09-30 02:21 | NUR ---
RN NOTES RECEIVED REPORT FROM ICU NURSE. PATIENT IN BED A/OX1. ON BIPAP WITH PRESCRIBED SETTINGS. NO SOB NO DISTRESS NOTED AT THIS TIME. WITH DEBBIE MIDLINE PATENT FLUSHES WELL NO REDNESS NO INFILTRATION NOTED AT THIS TIME RUNNING NS TKO. WITH R AVF + BRUIT +THRILL NO BLEEDING NOTED AT THE SITE. WITH R SOFT WRIST RESTRAINTS IN PLACE. CIRCULATION CHECK. ALL SAFETY MEASURES IN PLACE . WILL CLOSELY MONITOR THE PATIENT
--- NOTE | 2022-09-30 02:21 | NUR ---
ICU/GROUP DIRECTOR EXPERIENCE REPORT GIVEN TO JEAN-PIERRE MONZON FOR CONTINUITY OF CARE.
--- NOTE | 2022-09-30 06:00 | NUR ---
RN NOTES BS 56 MG/DL D50 GIVEN ORDERED. WILL RECHECK BS IN 30 MINUTES.
[2022-09-30] MEDS: DEXTROSE 50%-WATER 50 ML DISP.SYRIN IV PRN (06:08)
--- NOTE | 2022-09-30 06:49 | NUR ---
RN NOTES BS 127MG/DL AFTER D50. PATIENT AWAKE
--- NOTE | 2022-09-30 06:57 | NUR ---
RN NOTES PATIENT REMAINS ON BIPAP TOLERATING WELL. PATIENT IV ACCESS AT DEBBIE MIDLINE PATENT FLUSHES WELL. R AV FISTULA. ALL SAFETY MEASURES. HOB ELEVATED. FREQUENT VISUAL MONITORING RENDERED, WILL ENDORSED TO MORNING SHIFT
--- NOTE | 2022-09-30 07:15 | NUR ---
RN OPENING NOTES RECEIVED HAND OFF REPORT FROM NIGHTSFLFT JEAN-PIERRE MONZON. PATIENT ON BIPAP, TOLERATING SETTINGS WELL. PER CHARGE NURSE BERNA, PATIENT CANNOT "TOLERATE BEING OFF BIPAP FOR LONGER THAN A MINUTE" PATIENT ALERT AND ORIENTED TO NAME. V-PACING ON BEDSIDE CERTIFIED NURSE AIDE. RIGHT WRIST RESTRAINT NOTED, CIRCULATION IS WITHIN NORMAL LIMITS. IV ACCESS ON LEFT UPPER ARM MIDLINE. HEMODIALYSIS ACCESS ON RIGHT AV FISTULA. FAMILY AWAITING CONFERENCE WITH DOCTOR ATWOOD TODAY TO DISCUSS PATIENT CONDITION AND POSSIBLE TRANSFER. PATIENT MOVING AROUND IN BED INDEPENDENTLY. SAFETY MEASURES IMPLEMENTED, WILL CONTINUE PLAN OF CARE AND ANTICIPATE NEEDS.
[2022-09-30] MEDS: LEVOTHYROXINE SODIUM 25 MCG TABLET PO SCH (07:30)
[2022-09-30] MEDS: CALCIUM ACETATE 667 MG CAP/TAB PO SCH ×3 (08:00→17:26)
[2022-09-30] MEDS: COLCHICINE 0.6 MG TABLET PO SCH (09:00)
[2022-09-30] MEDS: VIT B CMPLX 3/FA/VIT C/BIOTIN 1 TAB TABLET PO SCH (09:00)
[2022-09-30] MEDS: CALCIUM CARBONATE 500 MG TAB.CHEW PO SCH ×2 (09:00→16:45)
[2022-09-30] MEDS: PANTOPRAZOLE 40 MG/PACK PACK PO SCH (09:00)
[2022-09-30] MEDS: PROSOURCE / PROSTAT (PYXIS) 30 ML UDC PO SCH (09:00)
[2022-09-30 09:02] LABS: ABG BASE EXCESS -3.6 mmol/L; ABG PCO2 38.5 mmHg (35.0-45.0); ABG PH 7.363 (7.350-7.450); ABG PO2 107.5 mmHg (75.0-100.0); AaDO2 350.2 mmHg; COHb 1.3 % (0.5-1.5); MetHb 0.3 % (0.0-1.5); O2Hb 96.4 % (94.0-97.0); SITE, ABG Left Radial; VENT MODE, BG 12 LITERS SIMPLE MASK
[2022-09-30] MEDS: BICALUTAMIDE 50 MG TABLET PO SCH (09:18)
[2022-09-30] MEDS: LEVETIRACETAM (250 MG) 250 MG TABLET PO SCH (09:18)
[2022-09-30] MEDS: NIFEdipine XL (30MG) 30 MG TAB PO SCH ×2 (09:18→21:00)
[2022-09-30] MEDS: CARVEDILOL 12.5 MG TABLET PO SCH ×2 (09:19→21:00)
[2022-09-30] MEDS: NTG 50 MG/D5W250 ML BOTTL 250 ML IV PRN ×2 (09:36→21:40)
[2022-09-30] MEDS: FAMOTIDINE (20 MG) 20 MG TABLET PO SCH (10:03)
[2022-09-30] MEDS: IV NS 0.9% 250 ML IV PRN (15:59)
--- NOTE | 2022-09-30 16:07 | NUR ---
rn notes bp 180/78, p-60 administered Hydralazine 20mg/ml iv push.
--- NOTE | 2022-09-30 18:59 | NUR ---
HAND OFF REPORT GIVEN TO ALFIE RN FOR CONTINUATION OF CARE.
--- NOTE | 2022-09-30 19:10 | NUR ---
RN OPENING NOTES RECEIVED PATIENT ON BED, AWAKE A/O X 0, ON BIPAP WITH SETTINGS 20/5, RATE- 12, FIO2- 40% RESPIRATOEY EVEN AND UNLABORED NO SOB NOTED, AFEBRILE, NO S/S OF DISTRESS NOTED. NOTED WITH DEBBIE MID LINE. RUNNING WITH NITRO @ 90 MCG/MIN. NOTED RIGHT AV FISTULA FOR HD, WITH ONGOING HEMODIALYSIS RIGHT NOW, TOLERATED WELL, NO HYPOTENSION, NO BRADYCARDIA NOTED AT THIS TIME. PATIENT NPO WHILE ON BIPAP. PATIENT IS ANURIC. NOTED WITH BILATERAL SOFT WRIST RESTRAINT AND RIGHT HAND MITTEN, RELEASE AND REASSESS Q2HR FOR CIRCULATION. ALL SAFETY PRECAUTION PROVIDED. BED IN LOWEST POSITION, LOCKED. CALL LIGHT WITH IN REACH.
--- NOTE | 2022-09-30 19:20 | NUR ---
ALL PO MEDS NON ADMIN. PATIENT UNABLE TO SWALLOW PILLS.
--- NOTE | 2022-09-30 20:45 | NUR ---
RN NOTES CALLED [facility], SPOKED TO RENATE, REGARDING PATIENT VANCO ORDER POST DIALYSIS, PATIENT HAS NO VANCO TROUGH PRIOR TO DIALYSIS, LAST TROUGH WAS 09/28/22 AND IT WAS 9, PER RENATE GIVE THE VANCO 500MG IV AFTER DIALYSIS AND JUST GET THE VANCO TROUGH BEFORE THE NEXT DIALYSIS. CHARGE NURSE MADE AWARE.
--- NOTE | 2022-09-30 21:15 | NUR ---
RN NOTES HEMODIALYSIS DONE, TOOK OUT 2000ML OUTPUT, PATIENT TOLERATED HD.
[2022-09-30] MEDS ORDERED: VANCOMYCIN 500 MG VIAL ONE (21:28)
[2022-09-30] MEDS: CEFEPIME 2 GM in IV D5W 100 ML IV SCH (21:37)
[2022-09-30] MEDS: TAMSULOSIN 0.4 MG CAP.SR.24H PO SCH (21:57)
--- NOTE | 2022-09-30 21:58 | NUR ---
RN NOTES HELD ALL ORAL MEDS PT. UNABLE TO SWALLOW AND PT. ON BIPAP.
[2022-09-30] MEDS: VANCOMYCIN POST DIALYSIS 500MG IV PRN ×2 (22:29)
[2022-09-30] MEDS: INSULIN REGULAR, HUMAN 100 UNIT/ML 3 ML VIAL SQ PRN (23:31)
--- NOTE | 2022-09-30 23:32 | NUR ---
RN NOTES BLOOD SUGAR 90 mg/dL, NO INSULIN COVERAGE PER SLIDING SCALE. NO S/S OF HYPOGLYCEMIA NOTED.
[2022-10-01] VITALS (82 sets, daily range): BP systolic 87–198; BP diastolic 39–172
[2022-10-01] MEDS: hydrALAZINE HCL IV 20 MG VIAL IV PRN ×3 (03:49→17:42)
--- NOTE | 2022-10-01 03:49 | NUR ---
RN NOTES NOTED WITH BLOOD PRESSURE 165/73, PULSE- 62, HYDRALAZINE 20MG IV GIVEN.
--- NOTE | 2022-10-01 06:20 | NUR ---
RN NOTES NOTED WITH BP 87/39, DNP MARYURI MARTINEZ MADE AWARE, HOLD THE NITRO DRIP.
[2022-10-01] MEDS: BLOOD SUGAR DIAGNOSTIC 1 EACH STRIP IN SCH ×4 (06:38→23:54)
[2022-10-01] MEDS: INSULIN REGULAR, HUMAN 100 UNIT/ML 3 ML VIAL SQ PRN (06:39)
--- NOTE | 2022-10-01 06:40 | NUR ---
RN NOTES BLOOD SUGAR 66 mg/dL, NO INSULIN COVERAGE PER SLIDING SCALE. NO S/S OF HYPOGLYCEMIA NOTED.
--- NOTE | 2022-10-01 07:00 | NUR ---
RN OPENING NOTES RECEIVED HAND OFF REPORT FROM NIGHTSHIFT RN ALFIE. PATIENT ON BIPAP, TOLERATING SETTINGS WELL. V-PACING ON BEDSIDE PEST LOCATOR. BILATERAL WRIST RESTRAINTS NOTED, CIRCULATION IS WITHIN NORMAL LIMITS. IV ACCESS ON LEFT UPPER ARM MIDLINE. HEMODIALYSIS ACCESS ON RIGHT AV FISTULA. SAFETY MEASURES IMPLEMENTED, WILL CONTINUE PLAN OF CARE AND ANTICIPATE NEEDS.
[2022-10-01] MEDS: LEVOTHYROXINE SODIUM 25 MCG TABLET PO SCH (07:30)
--- NOTE | 2022-10-01 07:51 | NUR ---
PRN HYDRALAZINE GIVEN FOR BP 198/81.
--- NOTE | 2022-10-01 07:53 | NUR ---
placed into simple mask @ 10 lpm o2 flow, bipap on stand by @ bedside. Addendum: 10/01/22 at 0754 by MONTSE LOPEZ RT Amended: Links added.
[2022-10-01] MEDS: CALCIUM ACETATE 667 MG CAP/TAB PO SCH ×3 (08:00→17:27)
[2022-10-01] MEDS: BICALUTAMIDE 50 MG TABLET PO SCH (08:02)
[2022-10-01] MEDS: COLCHICINE 0.6 MG TABLET PO SCH (08:03)
[2022-10-01] MEDS: CARVEDILOL 12.5 MG TABLET PO SCH ×2 (08:03→21:00)
[2022-10-01] MEDS: LEVETIRACETAM (250 MG) 250 MG TABLET PO SCH (08:03)
[2022-10-01] MEDS: CALCIUM CARBONATE 500 MG TAB.CHEW PO SCH ×2 (08:04→17:00)
[2022-10-01] MEDS: PROSOURCE / PROSTAT (PYXIS) 30 ML UDC PO SCH (08:04)
[2022-10-01] MEDS: NIFEdipine XL (30MG) 30 MG TAB PO SCH ×2 (08:04→21:00)
[2022-10-01] MEDS: VIT B CMPLX 3/FA/VIT C/BIOTIN 1 TAB TABLET PO SCH (08:04)
[2022-10-01] MEDS: PANTOPRAZOLE 40 MG/PACK PACK PO SCH (08:04)
--- NOTE | 2022-10-01 08:05 | NUR ---
NON ADMIN FOR MORNING MEDS. PATIENT UNABLE TO SWALLOW PO MEDICATIONS.
[2022-10-01 08:54] LABS: BASOPHILS # (AUTO) 0.1 K/uL (0.0-0.2); BASOPHILS % (AUTO) 1.5 % (0.0-2.0); EOSINOPHILS % (AUTO) 3.8 % (0.0-6.0); HEMATOCRIT 28 % (39-51); LYMPHOCYTES # (AUTO) 0.7 K/uL (0.8-4.8); LYMPHOCYTES % (AUTO) 16.8 % (20.0-44.0); MEAN CORPUSCULAR HGB CONC 33 g/dl (31.0-36.0); MEAN CORPUSCULAR VOLUME 96 fL (80-96); MONOCYTES # (AUTO) 0.6 K/uL (0.1-1.30); MONOCYTES % (AUTO) 16.3 % (2.0-12.0); NEUTROPHILS # (AUTO) 2.4 K/uL (1.8-8.9); NEUTROPHILS % (AUTO) 61.6 % (43.0-81.0); PLATELET COUNT (AUTO) 119 K/uL (150-450); RED BLOOD CELL COUNT(AUTO) 2.87 MIL/uL (4.5-6.0); WHITE BLOOD COUNT (AUTO) 3.9 K/uL (4.3-11.0)
[2022-10-01] MEDS: IV NS 0.9% 250 ML IV PRN (08:59)
[2022-10-01] MEDS ORDERED: K PHOS NEUTRAL 250 MG TABLET PO SCH (09:00)
[2022-10-01 09:08] LABS: CALCIUM, SERUM 7.8 mg/dL (8.5-10.1); CARBON DIOXIDE 24 mmol/L (21-32); CHLORIDE 99 mmol/L (98-107); CREATININE 2.6 mg/dL (0.6-1.3); GLUCOSE 75 mg/dL (74-106); POTASSIUM 3.6 mmol/L (3.5-5.1); SODIUM SERUM 136 mmol/L (136-145); UREA NITROGEN, BLOOD 26 mg/dL (7-18)
[2022-10-01] MEDS: FAMOTIDINE (20 MG) 20 MG TABLET PO SCH (10:03)
[2022-10-01 10:09] LABS: ABG BASE EXCESS -2.2 mmol/L; ABG OXYGEN SATURATION 99.4 % (92.0-98.5); ABG PCO2 38.5 mmHg (35.0-45.0); ABG PH 7.386 (7.350-7.450); ABG PO2 177.2 mmHg (75.0-100.0); AaDO2 208.3 mmHg; COHb 1.2 % (0.5-1.5); MetHb 0.3 % (0.0-1.5); O2Hb 97.9 % (94.0-97.0); SITE, ABG Right Brachial; VENT MODE, BG simple mask
--- NOTE | 2022-10-01 10:19 | NUR ---
abg drawn @ left brachial artery Addendum: 10/01/22 at 1020 by MONTSE LOPEZ RT Amended: Links added.
[2022-10-01] MEDS: DEXTROSE 50%-WATER 50 ML DISP.SYRIN IV PRN (11:04)
--- NOTE | 2022-10-01 11:04 | NUR ---
prn d50 given for blood sugar of 53. will reassess blood sugar in 30 minutes
[2022-10-01] MEDS: VANCOMYCIN POST DIALYSIS 500MG IV PRN ×4 (15:57→21:34)
--- NOTE | 2022-10-01 15:58 | NUR ---
NON ADMIN FOR VANCOMYCIN POST DIALYSIS. VANCO TROUGH 20
--- NOTE | 2022-10-01 17:42 | NUR ---
prn hydralazine given for blood pressure 179/145.
--- NOTE | 2022-10-01 19:09 | NUR ---
HAND OFF REPORT GIVEN TO WILLIAM MOREJON FOR CONTINUATION OF CARE
--- NOTE | 2022-10-01 20:00 | NUR ---
METAL WEATHER STRIPPER NOTE PT IN BED LETHARGIC, NO SOB, NO DISTRESS OR DISCOMFORT NOTED. NO S/S OF PAIN NOTED. ON TELE AV PACING HR 67. ON 4L NC O2 SAT 96%. LT EYE PATCH I/C/D. PT ON BILATERAL SOFT WRIST RESTRAINTS. DEBBIE MIDLINE INTACT AND PATENT WITH NS TKO. RT ARM WITH AV FISTULA. NO S/S OF HYPO OR HYPERGLYCEMIA NOTED. VERIFIED WITH PHARMACY REGARDING VANCO SUPPOSE TO BE GIVEN AFTER HD BUT NOT GIVEN IN DAY TIME. WILL GIVE WHEN PHARMACY DELIVER IT. KEPT HIM DRY AND CLEAN. ALL NEEDS ATTENDED. REPOSITION HIM FOR SKIN MANAGEMENT AND COMFORT. CONTINUE TO MONITOR HIM.
[2022-10-01] MEDS: CEFEPIME 2 GM in IV D5W 100 ML IV SCH (20:22)
--- NOTE | 2022-10-01 21:30 | NUR ---
SUPERINTENDENT WAREHOUSE NOTE HELD PO MEDS PT IS NPO.
[2022-10-01] MEDS: TAMSULOSIN 0.4 MG CAP.SR.24H PO SCH (21:31)
[2022-10-02] VITALS (42 sets, daily range): BP systolic 91–181; BP diastolic 28–110
[2022-10-02] MEDS: hydrALAZINE HCL IV 20 MG VIAL IV PRN ×2 (05:05→09:09)
--- NOTE | 2022-10-02 05:09 | NUR ---
INTERIOR DESIGN ASSISTANT NOTE BLOOD PRESSURE NOTED FLUCTUATED ALL NIGHT UP AND DOWN. AT THIS TIME IT IS 181/79 HR 65 HYDRALAZINE 20 MG IVP GIVEN. CONTINUE TO MONITOR B/P.
[2022-10-02] MEDS: BLOOD SUGAR DIAGNOSTIC 1 EACH STRIP IN SCH ×3 (05:32→17:48)
--- NOTE | 2022-10-02 05:39 | NUR ---
HALVER MACHINE OPERATOR NOTE BP CAME DOWN TO 135/60.
--- NOTE | 2022-10-02 06:41 | NUR ---
CHINESE TEACHER NOTE PT IN BED ASLEEP, LETHARGIC. CALM AND RELAXED. NOT MOVING HIS HEAD AROUND. NO DISTRESS OR DISCOMFORT NOTED. NO S/S OF PAIN NOTED. NOTED. ON TELE AV PACING HR 60. B/P AT THIS TIME 106/42. BILATERAL SOFT WRIST RESTRAINTS ON. SIDE RAILS UP X 3. WILL ENDORSE TO DAY SHIFT NURSE FOR CONTINUE TO CARE.
[2022-10-02] MEDS: LEVOTHYROXINE SODIUM 25 MCG TABLET PO SCH (07:30)
--- NOTE | 2022-10-02 07:30 | NUR ---
CLAIMS DIRECTOR OPENING NOTE PT IN BED AWAKE, ON BIPAP ON SETTING ORDERED, NO SOB, NO DISTRESS OR DISCOMFORT NOTED. NO S/S OF PAIN NOTED. ON TELE AV PACING HR 67. LT EYE PATCH I/C/D. PT ON BILATERAL SOFT WRIST RESTRAINTS. DEBBIE MIDLINE INTACT AND PATENT WITH NS TKO. RT ARM WITH AV FISTULA, POSITIVE FOR BRUIT AND THRILL. NO S/S OF HYPO OR HYPERGLYCEMIA NOTED. REPOSITION HIM FOR SKIN MANAGEMENT AND COMFORT. CALL LIGHT WITHIN REACH. PLAN OF CARE CONTINUE. Addendum: 10/02/22 at 0753 by KHARI HELLER RN RECEIVED PATIENT OFF NITROGLYCERINE IV.
--- NOTE | 2022-10-02 07:50 | NUR ---
awake but unable to follow commands placed into nasal cannula @ 2 lpm o2 flow spo2 97% Addendum: 10/02/22 at 0913 by MONTSE LOPEZ RT Amended: Links added.
--- NOTE | 2022-10-02 07:53 | NUR ---
RT REMOVED BIPAP, PATIENT PUT ON 2L 02 VIA NC, NOTED 02 SAT @93%.
[2022-10-02] MEDS: CALCIUM ACETATE 667 MG CAP/TAB PO SCH ×3 (08:00→17:28)
--- NOTE | 2022-10-02 08:25 | NUR ---
PATIENT OFF BIPAP, TRY GIVING PATIENT SIPS OF WATER, PATIENT WON'T OPEN HIS MOUTH, INFORMED DR. KIKE MANRIQUE, WAITING FOR ORDERS. PLAN OF CARE CONTINUE.
--- NOTE | 2022-10-02 08:40 | NUR ---
PATIENT WON'T OPEN HIS MOUTH FOR SIPS OF WATER, INFORMED DR. MANRIQUE, WITH NEW ORDER FOR ST EVAL, NOTED AND CARRIED OUT. PLAN OF CARE CONTINUE.
[2022-10-02] MEDS: NIFEdipine XL (30MG) 30 MG TAB PO SCH ×3 (09:00→21:13)
[2022-10-02] MEDS: PROSOURCE / PROSTAT (PYXIS) 30 ML UDC PO SCH (09:00)
[2022-10-02] MEDS: VIT B CMPLX 3/FA/VIT C/BIOTIN 1 TAB TABLET PO SCH (09:00)
[2022-10-02] MEDS: BICALUTAMIDE 50 MG TABLET PO SCH (09:00)
[2022-10-02] MEDS: CARVEDILOL 12.5 MG TABLET PO SCH ×3 (09:00→21:14)
[2022-10-02] MEDS: CALCIUM CARBONATE 500 MG TAB.CHEW PO SCH ×2 (09:00→17:28)
[2022-10-02] MEDS: ERGOCALCIFEROL (VITAMIN D 2) 50,000 UNIT CAPSULE PO SCH (09:00)
[2022-10-02] MEDS: COLCHICINE 0.6 MG TABLET PO SCH (09:00)
--- NOTE | 2022-10-02 10:09 | NUR ---
PATIENT UNABLE TO TAKE MEDICATIONS THRU MOUTH, INFORMED PHARMACY IF WE CAN SWITCH SOME OF THE MEDICATIONS TO IV, PER PHARMACY HE WILL CHANGE IT, PLAN OF CARE CONTINUE.
[2022-10-02] MEDS ORDERED: KEPPRA 500 MG in IV NS 100 ML IV SCH (10:30)
[2022-10-02 10:37] LABS: BASOPHILS # (AUTO) 0.1 K/uL (0.0-0.2); BASOPHILS % (AUTO) 1.6 % (0.0-2.0); EOSINOPHILS % (AUTO) 2.2 % (0.0-6.0); HEMATOCRIT 34 % (39-51); HEMOGLOBIN 11.1 g/dL (13.5-17.5); LYMPHOCYTES # (AUTO) 0.7 K/uL (0.8-4.8); LYMPHOCYTES % (AUTO) 14.8 % (20.0-44.0); MEAN CORPUSCULAR HGB CONC 33 g/dl (31.0-36.0); MEAN CORPUSCULAR VOLUME 96 fL (80-96); MONOCYTES # (AUTO) 0.9 K/uL (0.1-1.30); MONOCYTES % (AUTO) 17.6 % (2.0-12.0); NEUTROPHILS # (AUTO) 3.2 K/uL (1.8-8.9); NEUTROPHILS % (AUTO) 63.8 % (43.0-81.0); PLATELET COUNT (AUTO) 116 K/uL (150-450)
--- NOTE | 2022-10-02 10:43 | NUR ---
DR. STOKES ON BEDSIDE, WITH NEW ORDER TO INSERT NGT AND DIETARY CONSULT, NOTED AND CARRIED,INSERTED NGT FR 14 ON RIGHT NARES, PATIENT TOLERATED, PLAN OF CARE CONTINUE.
[2022-10-02 10:58] LABS: CALCIUM, SERUM 8.1 mg/dL (8.5-10.1); CARBON DIOXIDE 25 mmol/L (21-32); CHLORIDE 101 mmol/L (98-107); CREATININE 2.7 mg/dL (0.6-1.3); GLUCOSE 77 mg/dL (74-106); POTASSIUM 3.5 mmol/L (3.5-5.1); SODIUM SERUM 139 mmol/L (136-145); UREA NITROGEN, BLOOD 23 mg/dL (7-18)
--- NOTE | 2022-10-02 12:01 | NUR ---
CHEST XRAY RESULTS RECEIVED: 1. Nasogastric tube in satisfactory position., WITH ORDER OK TO USE NGT, NOTED AND CARRIED OUT, CALLED OFFICE SYSTEMS TECHNOLOGY INSTRUCTOR, WITH ORDER TO START PATIENT ON GLUCERNA 1.2 AT 20ML/HR, NOTED AND CARRIED OUT, PLAN OF CARE CONTINUE.
--- NOTE | 2022-10-02 12:20 | NUR ---
CALLED [facility]3 TO INFORM ABOUT THE NGT INSERTION AND STARTING OF NGT FEEDING, NO ANSWER LEFT A VOICEMAIL. PLAN OF CARE CONTINUE.
[2022-10-02] MEDS ORDERED: GLUCERNA 1.2 1,000 ML BOTTLE NG PRN (12:30)
[2022-10-02 13:20] LABS: EOSINOPHILS % (MANUAL) 3 % (0-4); LYMPHOCYTES % (MANUAL) 19 % (16-48); MONOCYTES % (MANUAL) 14 % (0-11.0); NEUTROPHILS % (MANUAL) 64 (42-76)
[2022-10-02] MEDS: NEPRO 1,000 ML BOTTLE NG PRN (13:34)
--- NOTE | 2022-10-02 14:43 | NUR ---
INFORMED RT THAT 02 SAT IS BELOW 90%, RT AT THE BEDSIDE, CHANGED PATIENT TO SIMPLE MASK 02 SAT @97-98%. RT NOTED PATIENT LABORED BREATHING, RT PUT PATIENT ON BIPAP, DR. ATWOOD INFORMED BY RT. WITH ORDER TO DO ABG. PLAN OF CARE CONTINUE.
--- NOTE | 2022-10-02 14:48 | NUR ---
placed back into bipap due to increase work of breathing and desaturation. Addendum: 10/02/22 at 1448 by MONTSE LOPEZ RT Amended: Links added.
[2022-10-02 15:30] LABS: ABG BASE EXCESS -1.5 mmol/L; ABG OXYGEN SATURATION 89.9 % (92.0-98.5); ABG PCO2 38.2 mmHg (35.0-45.0); ABG PH 7.399 (7.350-7.450); ABG PO2 56.6 mmHg (75.0-100.0); AaDO2 329.2 mmHg; COHb 1.6 % (0.5-1.5); MetHb 0.3 % (0.0-1.5); O2Hb 88.2 % (94.0-97.0); SITE, ABG Left Brachial; VENT MODE, BG 20 ipap/5 epap
--- NOTE | 2022-10-02 15:36 | NUR ---
Zhao ATWOOD Addendum: 10/02/22 at 1537 by MONTSE LOPEZ RT Amended: Links added.
--- NOTE | 2022-10-02 16:29 | NUR ---
PATIENT'S DAUGHTER STATED THAT THEY DECIDED THAT PATIENT WILL BE DNR/DNI, INFORMED DR. KIKE MANRIQUE WITH NEW ORDER NOTED AND CARRIED OUT. PLAN OF CARE CONTINUE.
--- NOTE | 2022-10-02 17:06 | NUR ---
INFORMED DR. MANRIQUE THAT PATIENT CAN'T GO TO THE CT OF THE HEAD DUE TO PATIENT CAN'T STAY STILL. DR. MANRIQUE CALLED THE FAMILY THAT'S ON THE BEDSIDE.
[2022-10-02] MEDS ORDERED: BICALUTAMIDE 50 MG TABLET PO ONE (18:00)
--- NOTE | 2022-10-02 19:18 | NUR ---
REAL ESTATE PHOTOGRAPHER NOTE RECEIVED PT IN BED LETHARGIC, NO DISTRESS OR DISCOMFORT NOTED. NO S/S OF PAIN NOTED. ON TELE AV PACING HR 67. ON BIPAP 20/10 FIO2 60%, MACHINE ALARMING CALLED RT AT BEDSIDE, NOTED LT EYE PATCH I/C/D. WITH NGT RUNNING NEPHRO 1.2 RUNNING 20 ML/HR PT TOLERATING WELL, PT ON BILATERAL SOFT WRIST RESTRAINTS. DEBBIE MIDLINE INTACT AND PATENT WITH NS TKO. RT ARM WITH AV FISTULA. NO S/S OF HYPO OR HYPERGLYCEMIA NOTED. SAFETY MEASURES IN PLACED, ALL NEEDS ATTENDED. REPOSITION HIM FOR SKIN MANAGEMENT AND COMFORT. WILL CONTINUE TO MONITOR THROUGHOUT THE SHIFT.
--- NOTE | 2022-10-02 19:30 | NUR ---
INDEPENDENT VIDEO PRODUCER CLOSING NOTE PT IN BED FAMILY AT BEDSIDE, ON BIPAP ON SETTING ORDERED, NO SOB, NO DISTRESS OR DISCOMFORT NOTED. NO S/S OF PAIN NOTED. ON TELE MONITORING. LT EYE PATCH I/C/D. PATIENT ON BILATERAL SOFT WRIST RESTRAINT, CHECK FOR SKIN CIRCULATION. DEBBIE MIDLINE INTACT AND PATENT, FLUSHES WELL. RT ARM WITH AV FISTULA, POSITIVE FOR BRUIT AND THRILL, DRESSING C/D/I. SACRUM DTI OPTIFOAM INTACT. REPOSITION FOR SKIN MANAGEMENT AND COMFORT. CALL LIGHT WITHIN REACH. ENDORSED TO JAILOR NURSE FOR LIBIA.
[2022-10-02] MEDS: TAMSULOSIN 0.4 MG CAP.SR.24H PO SCH (21:13)
[2022-10-02] MEDS: CEFEPIME 2 GM in IV D5W 100 ML IV SCH (21:14)
[2022-10-02] MEDS ORDERED: ATORVASTATIN 10 MG TABLET PO SCH (22:00)
[2022-10-02 22:29] LABS: ABG PCO2 40.3 mmHg (35.0-45.0); ABG PH 7.359 (7.350-7.450); ABG PO2 51.2 mmHg (75.0-100.0); AaDO2 621.5 mmHg; COHb 0.9 % (0.5-1.5); MetHb 0.3 % (0.0-1.5); SITE, ABG Left Brachial; VENT MODE, BG st 12 20/10 100%
--- NOTE | 2022-10-02 22:30 | NUR ---
RN NOTE NOTED PT HYPOTENSIVE AT 66/32 HR AT 60 BPM, PT WAS JUST GIVEN PROCARDIA AND COREG FOR HTN, COLLECTION ADVISOR MD MADE AWARE. ORDERED TO MONITOR PT IF BP CONTINUOUS TO GO DOWN START ON LEVOPHED. ABG DONE RESULT RELAYED TO MD, AWAITING FOR NEW ORDERS.
--- NOTE | 2022-10-02 23:40 | NUR ---
RN NOTE PT BP AT 96/74 HR AT 62 BPM, PER RT CHANGED FIO2 TO 100% AFTER ABG RESULTED AND RELAYED TO QUALITATIVE RESEARCHER MD. WILL CONT TO MONITOR.
[2022-10-03] VITALS (31 sets, daily range): BP systolic 0–173; BP diastolic 0–106
[2022-10-03] MEDS: BLOOD SUGAR DIAGNOSTIC 1 EACH STRIP IN SCH ×4 (00:03→18:37)
[2022-10-03] MEDS: INSULIN REGULAR, HUMAN 100 UNIT/ML 3 ML VIAL SQ PRN ×4 (00:03→19:23)
[2022-10-03 04:48] LABS: BASOPHILS % (AUTO) 0.8 % (0.0-2.0); EOSINOPHILS % (AUTO) 2.7 % (0.0-6.0); HEMATOCRIT 31 % (39-51); HEMOGLOBIN 10.3 g/dL (13.5-17.5); LYMPHOCYTES # (AUTO) 0.8 K/uL (0.8-4.8); LYMPHOCYTES % (AUTO) 16.2 % (20.0-44.0); MEAN CORPUSCULAR HGB CONC 33 g/dl (31.0-36.0); MEAN CORPUSCULAR VOLUME 96 fL (80-96); MONOCYTES # (AUTO) 0.7 K/uL (0.1-1.30); MONOCYTES % (AUTO) 15.4 % (2.0-12.0); NEUTROPHILS # (AUTO) 3.1 K/uL (1.8-8.9); NEUTROPHILS % (AUTO) 64.9 % (43.0-81.0); PLATELET COUNT (AUTO) 115 K/uL (150-450); RED BLOOD CELL COUNT(AUTO) 3.26 MIL/uL (4.5-6.0); WHITE BLOOD COUNT (AUTO) 4.8 K/uL (4.3-11.0)
[2022-10-03 05:13] LABS: CARBON DIOXIDE 26 mmol/L (21-32); CHLORIDE 101 mmol/L (98-107); CREATININE 3.4 mg/dL (0.6-1.3); GLUCOSE 159 mg/dL (74-106); MAGNESIUM 2.2 mg/dL (1.8-2.4); PHOSPHORUS 2.7 mg/dL (2.5-4.9); POTASSIUM 3.3 mmol/L (3.5-5.1); SODIUM SERUM 139 mmol/L (136-145); UREA NITROGEN, BLOOD 37 mg/dL (7-18)
--- NOTE | 2022-10-03 06:35 | NUR ---
RESIDENTIAL SUPPORT SPECIALIST CLOSING NOTE PT REMAINS IN BED LETHARGIC, NO DISTRESS OR DISCOMFORT NOTED. ON TELE AV PACING HR 63. ON BIPAP 20/10 FIO2 100%, TOLERATING WELL SATING 95%, NOTED LT EYE PATCH I/C/D. WITH NGT RUNNING NEPHRO 1.2 RUNNING 45 ML/HR PT TOLERATING WELL, PT ON BILATERAL SOFT WRIST RESTRAINTS. DEBBIE MIDLINE INTACT AND PATENT WITH NS TKO. RT ARM WITH AV FISTULA. ALL DUE MEDS GIVEN, KEPT DRY AND CLEAN, SAFETY MEASURES IN PLACED, ALL NEEDS ATTENDED. REPOSITION PT FOR SKIN MANAGEMENT AND COMFORT. WILL ENDORSE TO AM SHIFT NURSE FOR CONTINUITY OF CARE.
[2022-10-03] MEDS: LEVOTHYROXINE SODIUM 25 MCG TABLET PO SCH (07:43)
[2022-10-03] MEDS: BICALUTAMIDE 50 MG TABLET PO SCH (09:00)
[2022-10-03] MEDS ORDERED: PHARMACY TO CHANGE PO MEDS TO GT/NG XX PRN (09:00)
[2022-10-03] MEDS ORDERED: PANTOPRAZOLE 40 MG VIAL IV SCH (09:00)
[2022-10-03] MEDS: CALCIUM ACETATE 667 MG CAP/TAB PO SCH (09:04)
[2022-10-03] MEDS ORDERED: LEVOTHYROXINE SODIUM 25 MCG TABLET NG SCH (09:47)
[2022-10-03] MEDS ORDERED: COLCHICINE 0.6 MG TABLET NG SCH (09:48)
[2022-10-03] MEDS ORDERED: ATORVASTATIN 10 MG TABLET NG SCH (09:49)
--- NOTE | 2022-10-03 09:49 | NUR ---
RN NOTE PER PHARMACY, CANNOT CRUSH MEDICATION: CASODEX/ BICALUTAMIDE 50MG TABLET. WILL HOLD UNTIL ROUTE IS CHANGE TO .
[2022-10-03] MEDS ORDERED: MAG HYDROX/AL HYDROX/SIMETH 30 ML UDC NG PRN (09:50)
[2022-10-03] MEDS: ERGOCALCIFEROL (VITAMIN D 2) 50,000 UNIT CAPSULE NG SCH ×2 (09:50→12:01)
[2022-10-03] MEDS ORDERED: NEPRO VAN 237 ML CAN NG PRN (09:51)
[2022-10-03] MEDS ORDERED: MAGNESIUM HYDROXIDE 30 ML UDC NG PRN (09:51)
[2022-10-03] MEDS ORDERED: TAMSULOSIN 0.4 MG CAP.SR.24H NG SCH (09:51)
[2022-10-03] MEDS ORDERED: VIT B CMPLX 3/FA/VIT C/BIOTIN 1 TAB TABLET NG SCH (09:51)
[2022-10-03] MEDS: CALCIUM CARBONATE 500 MG TAB.CHEW PO SCH (09:52)
[2022-10-03] MEDS: PROSOURCE / PROSTAT (PYXIS) 30 ML UDC PO SCH (09:53)
[2022-10-03] MEDS: ACETYLCYSTEINE 10% SOLN 400 MG/4 ML VIAL NEB SCH ×3 (10:00→23:39)
[2022-10-03] MEDS: CARVEDILOL 12.5 MG TABLET NG SCH ×2 (10:04→21:36)
[2022-10-03] MEDS: NIFEdipine XL (30MG) 30 MG TAB PO SCH (10:04)
[2022-10-03] MEDS ORDERED: POTASSIUM CHLORIDE 20 MEQ POWDER PACKET NG SCH (10:30)
[2022-10-03] MEDS ORDERED: PROSOURCE / PROSTAT (PYXIS) 30 ML UDC NG SCH (10:47)
[2022-10-03] MEDS ORDERED: FAMOTIDINE (20 MG) 20 MG TABLET NG SCH (10:47)
[2022-10-03] MEDS ORDERED: CALCIUM CARBONATE 500 MG TAB.CHEW NG SCH (10:48)
[2022-10-03 10:51] LABS: ABG BASE EXCESS -0.6 mmol/L; ABG PCO2 39.1 mmHg (35.0-45.0); ABG PH 7.405 (7.350-7.450); ABG PO2 50.6 mmHg (75.0-100.0); AaDO2 334.2 mmHg; COHb 1.5 % (0.5-1.5); MetHb 0.3 % (0.0-1.5); O2Hb 85.4 % (94.0-97.0); SITE, ABG Left Radial
--- NOTE | 2022-10-03 11:49 | NUR ---
RN NOTE NOTIFIED RT OF DESATURATION. CHARGE NURSE AWARE. NOTIFIED DAUGHTER TAWNYA TO COME TO THE HOSPITAL. FAMILY IS ON THEIR WAY.
[2022-10-03] MEDS: CALCIUM ACETATE 667 MG CAP/TAB NG SCH ×2 (14:31→18:37)
--- NOTE | 2022-10-03 17:19 | NUR ---
RN NOTE NOTIFIED DR MANRIQUE OF DVT ON THE LEFT BASILIC VEIN. WAITING FOR MD ORDER.
--- NOTE | 2022-10-03 18:18 | NUR ---
RT PATIENT REMAINS IN CRITICAL CONDITION ON BIPAP 25/10 100% PATIENT UNABLE TO TOLERATE BIPAP BEING REMOVED. MEPILEX PADDING ON ALL SKIN TO MACHINE AREAS. MASK SEALED THE BEST THAT CAN BE DONE.
[2022-10-03] MEDS: NEPRO 1,000 ML BOTTLE NG PRN (18:53)
--- NOTE | 2022-10-03 19:29 | NUR ---
DIRECTOR STARS CLOSING NOTE PT REMAINS IN BED LETHARGIC, NO DISTRESS OR DISCOMFORT NOTED. ON TELE V PACING HR 60. ON BIPAP 20/10 FIO2 100%, SATING 100%, NOTED LT EYE PATCH I/C/D. WITH NGT RUNNING NEPHRO 1.2 RUNNING 45 ML/HR PT TOLERATING WELL. DEBBIE MIDLINE INTACT AND PATENT WITH NS TKO. RT ARM WITH AV FISTULA. ALL DUE MEDS GIVEN. SAFETY MEASURES IN PLACED, ALL NEEDS ATTENDED. WILL ENDORSE TO PM SHIFT NURSE FOR CONTINUITY OF CARE.
--- NOTE | 2022-10-03 19:31 | NUR ---
TAPE LIBRARIAN NOTE RECEIVED PT IN BED LETHARGIC, NO DISTRESS OR DISCOMFORT NOTED. NO S/S OF PAIN NOTED. ON TELE AV PACING HR 65. ON BIPAP 20/10 FIO2 100%, NOTED LT EYE PATCH I/C/D. WITH NGT RUNNING NEPHRO 1.2 RUNNING 45 ML/HR PT TOLERATING WELL, WITH DEBBIE MIDLINE INTACT AND PATENT WITH NS TKO. RT ARM WITH AV FISTULA. NO S/S OF HYPO OR HYPERGLYCEMIA NOTED. SAFETY MEASURES IN PLACED, ALL NEEDS ATTENDED. REPOSITION HIM FOR SKIN MANAGEMENT AND COMFORT. WILL CONTINUE TO MONITOR THROUGHOUT THE SHIFT.
[2022-10-03] MEDS ORDERED: LEVETIRACETAM SOL (5 ML) 100 MG/ML UDC GT SCH (21:00)
[2022-10-03] MEDS: CEFEPIME 2 GM in IV D5W 100 ML IV SCH (21:31)
--- NOTE | 2022-10-03 22:50 | NUR ---
JEAN-PIERRE NOTE DIALYSIS STARTED WITH JEAN-PIERRE ALLAN AT BEDSIDE, PT V/S STABLE AT THIS TIME 97.5, 122/54, 60, 92%. Addendum: 10/04/22 at 0308 by SARITA SPARKS RN ASSOCIATE STORE DIRECTOR JAY MADE AWARE COREG 12.5 MG TABLET GIVEN THIS EVENING AT 2130. PT BP CONTROLLED BEFORE DIALYSIS.
[2022-10-03] MEDS ORDERED: ALBUMIN 25% 25 GM in PREMIX 1 EA IV PRN (23:00)
[2022-10-03] MEDS ORDERED: ALBUMIN 25% 100 ML IV ONE (23:09)
--- NOTE | 2022-10-03 23:25 | NUR ---
RN NOTE DIALYSIS STOPPED DUE TO BP NOT OBTAINED ON THE MONITOR. ALBUMIN 25% GIVEN, LEVOPHED STARTED PER PROTOCOL, PT +239 DURING DIALYSIS, BP WENT UP TO 127/78 HR 60. CN MADE AWARE.
[2022-10-03] MEDS ORDERED: NOREPINEPHRINE 32 MG in IV NS 0.9% 218 ML IV PRN (23:30)
[2022-10-03] MEDS ORDERED: NOREPINEPHRINE 4 MG/4 ML AMPUL IV ONE (23:33)
[2022-10-04] VITALS: BP 0/0
--- NOTE | 2022-10-04 | NUR ---
RN NOTE CALLED CN AT BEDSIDE PT NOTED PULSELESS WITH NO BP ON THE MONITOR. RECHECKED MANUALLY STILL CAN'T OBTAIN. PT ON DNR/DNI STATUS. COMFORT MEASURES PROVIDED. 0011 ELDER COUNSELOR NORMA AND CN AT BEDSIDE VERIFIED WITH NO PULSE AND UNRESPONSIVE, PRONOUNCED PT TIME OF 10/04/22. 0015 CALLED FAMILY MEMBER SPOKE TO PAUL UPDATED ABOUT PT AT 10/04 0011. VERBALIZED THEY'LL BE COMING OVER SOON. [id number]. CALLED [facility] TO REPORT SPOKE TO MELODY Singh, CASE DECLINED WITH C # [id number].
--- NOTE | 2022-10-04 00:41 | NUR ---
RN/ICU-PRONOUNCEMENT OF :CODE STATUS"DO NOT RESUSCITATE, DO NOT INTUBATE". UNRESPONSIVE TO ANY FORM OF STIMULI, PUPILS ARE FIXED AND DILATED. APNEIC, RESPIRATIONS ARE ABSENT.PERIPHERAL PULSES ARE ABSENT. EKG ASYSTOLE X2 LEADS. NO SIGNS OF LIFE. PT. PRONOUNCED AT 0011.GALEN DEUTSCH PRESENT AND MADE AWARE OF PT. STATUS.
[2022-10-04] MEDS: BLOOD SUGAR DIAGNOSTIC 1 EACH STRIP IN SCH (01:24)
[2022-10-04] MEDS ORDERED: AMLODIPINE BESYLATE 10 MG TABLET NG SCH (09:00)
== END 2022-10-04 00:11 | DRG 177 ==
LOC: ER 23:52 → TELE 09-24 03:18 → ICU 09-27 12:46
PROVIDERS: ADMIT Nurse Practitioner Family; ATTEND Nurse Practitioner Acute Care
PROC: 5A1D70Z Performance of Urinary Filtration, Intermittent, Less than 6 Hours Per Day (ICD-10-PCS; principal; 2022-09-24)
PROC: 5A09357 Assistance with Respiratory Ventilation, Less than 24 Consecutive Hours, Continuous Positive Airway Pressure (ICD-10-PCS; 2022-09-27)
PROC: 05HA33Z Insertion of Infusion Device into Left Brachial Vein, Percutaneous Approach (ICD-10-PCS; 2022-09-29)
DX: J15.6 Pneumonia due to other Gram-negative bacteria (principal); I50.23 Acute on chronic systolic (congestive) heart failure; N18.6 End stage renal disease; J96.01 Acute respiratory failure with hypoxia; J96.02 Acute respiratory failure with hypercapnia; I13.2 Hypertensive heart and chronic kidney disease with heart failure and with stage 5 chronic kidney disease, or end stage renal disease; D61.818 Other pancytopenia; E87.1 Hypo-osmolality and hyponatremia; J98.11 Atelectasis; E87.20 Acidosis, unspecified; J90 Pleural effusion, not elsewhere classified; E11.22 Type 2 diabetes mellitus with diabetic chronic kidney disease; Z20.822 Contact with and (suspected) exposure to COVID-19; Z99.2 Dependence on renal dialysis; Z85.46 Personal history of malignant neoplasm of prostate; K21.9 Gastro-esophageal reflux disease without esophagitis; Z86.73 Personal history of transient ischemic attack (TIA), and cerebral infarction without residual deficits; Z95.0 Presence of cardiac pacemaker; I48.91 Unspecified atrial fibrillation; Z79.4 Long term (current) use of insulin; Z79.51 Long term (current) use of inhaled steroids; M89.8X9 Other specified disorders of bone, unspecified site; H54.62 Unqualified visual loss, left eye, normal vision right eye; Z66 Do not resuscitate; E83.39 Other disorders of phosphorus metabolism; I27.20 Pulmonary hypertension, unspecified; Z79.899 Other long term (current) drug therapy; H70.92 Unspecified mastoiditis, left ear; T17.990A Other foreign object in respiratory tract, part unspecified in causing asphyxiation, initial encounter; X58.XXXA Exposure to other specified factors, initial encounter; Y92.9 Unspecified place or not applicable
CPT/HCPCS: 36410; 36415; 36600; 70450-TC; 71045-TC; 71250-TC; 80048-TC; 80061-TC; 80202-TC; 82803-TC; 82962-TC; 83540-TC; 83735-TC; 83880; 84100-TC; 84439-TC; 84443-TC; 84481; 84484-TC; 85025-TC; 86706; 87040-TC; 87081-TC; 87340; 90935-TC; 93307-TC; 93970-TC; 94660; 94760-TC; 94799-TC; 97112-TC; 97116-TC; 97530-TC; C9113; C9803; G0378; J0360; J0456; J0692; J0696; J1644; J1815; J1953; J2270; J2930; J3370; J3490; J7030; J7050; J7060; P9047